=== PATIENT | male | born 1960 | race Caucasian/White ===

== ENCOUNTER → 2016-08-10 10:56 | Outpatient (CLI) | payer MEDICARE ==
[2016-05-06 11:01] VITALS: BMI 25.6
[~2016-08-10 10:56] MED LIST: ADVAIR 100/501 DISK INH; COLACE100 MG PO; CYCLOBENZAPRINE10 MG PO; ELIQUIS2.5 MG PO; HYDROCODONE-APA1 TAB PO; MS CONTIN15 MG PO; NEXIUM40 MG PO; OMEPRAZOLE40 MG PO; OXYCODONE HCL5 MG PO; PRINIVIL20 MG PO; PROAIR HFA8.5 GM INH; ROBAXIN500 MG PO; TOPAMAX25 MG PO; ULTRAM50 MG PO
== END | disposition home or self-care (01) ==
LOC: D.CT 10:56
DX: T84.068A Wear of articular bearing surface of other internal prosthetic joint, initial encounter (principal)

== ENCOUNTER 2016-11-30 18:11 | Emergency (ER) | payer MEDICARE ==
[2016-05-06 11:01] VITALS: BMI 25.6
[2016-11-30 18:53] LABS: BASOPHILS 0.2 % (0-2); EOSINOPHILS 1.3 % (0-7); HEMATOCRIT 42.1 % (42.0-54.0); HEMOGLOBIN 13.7 g/dL (13.5-17.5); IMMATURE GRANULOCYTES 0.3 % (0-5); LYMPHOCYTES 18.8 % (15-50); MCH 30.4 pg (26.0-34.0); MCHC 32.5 g/dL (31.0-37.0); MCV 93.3 fL (80.0-100.0); MEAN PLATELET VOLUME 10.3 fL (7.4-10.4); MONOCYTES 9.7 % (2-11); NEUTROPHILS 69.7 % (40-80); RBC 4.51 10x6/uL (4.20-6.10); RDW 12.8 % (11.5-14.5); WBC 6.4 10x3/uL (4.8-10.8)
[2016-11-30 18:56] LABS: PLATELET COUNT 241 10x3/uL (130-400)
[2016-11-30 18:56] LABS: APPEARANCE CLEAR (CLEAR); BILIRUBIN NEGATIVE (NEGATIVE); COLOR YELLOW (YELLOW); GLUCOSE NEGATIVE (NEGATIVE); KETONE NEGATIVE (NEGATIVE); LEUKOCYTE ESTERASE NEGATIVE (NEGATIVE); NITRITE NEGATIVE (NEGATIVE); PROTEIN NEGATIVE (NEGATIVE); UROBILINOGEN NORMAL (NORMAL)
[2016-11-30 19:08] LABS: ALBUMIN 4.1 g/dL (3.4-5.0); ANION GAP 14.6 mmol/L (8-16); BILIRUBIN - TOTAL 0.47 mg/dL (0.2-1.3); CALCIUM 9.2 mg/dL (8.5-10.1); CARBON DIOXIDE 25.9 mmol/L (21.0-32.0); CREATININE - SERUM 2.1 mg/dL (0.6-1.3); POTASSIUM - SERUM 4.5 mmol/L (3.5-5.1); PROTEIN - SERUM 7.4 g/dL (6.4-8.2)
== END 2016-11-30 21:12 | disposition home or self-care (01) ==
LOC: D.ER 18:11
PROVIDERS: Emergency Medicine
DX: N20.1 Calculus of ureter (principal); N23 Unspecified renal colic; C61 Malignant neoplasm of prostate; I10 Essential (primary) hypertension

== ENCOUNTER 2016-12-01 10:41 | Day surgery (SDC) | payer MEDICARE | END 2016-12-01 18:54 | disposition home or self-care (01) | LOC: D.OPS 10:41 → D.SDCHOLD 13:41 | PROVIDERS: Urology | DX: N20.0 Calculus of kidney (principal); J45.909 Unspecified asthma, uncomplicated; I10 Essential (primary) hypertension; K21.9 Gastro-esophageal reflux disease without esophagitis; Z01.812 Encounter for preprocedural laboratory examination ==

== ENCOUNTER 2016-12-12 10:59 | Emergency (ER) | payer MEDICARE ==
[2016-05-06 11:01] VITALS: BMI 25.6
[2016-12-12 12:19] LABS: BASOPHILS 0.2 % (0-2); EOSINOPHILS 0 % (0-7); HEMATOCRIT 41.7 % (42.0-54.0); HEMOGLOBIN 13.5 g/dL (13.5-17.5); IMMATURE GRANULOCYTES 0.2 % (0-5); LYMPHOCYTES 5.8 % (15-50); MCH 29.9 pg (26.0-34.0); MCHC 32.4 g/dL (31.0-37.0); MCV 92.5 fL (80.0-100.0); MEAN PLATELET VOLUME 10.2 fL (7.4-10.4); MONOCYTES 11.7 % (2-11); NEUTROPHILS 82.1 % (40-80); PLATELET COUNT 193 10x3/uL (130-400); RBC 4.51 10x6/uL (4.20-6.10); WBC 16.5 10x3/uL (4.8-10.8)
[2016-12-12 15:39] LABS: APPEARANCE HAZY (CLEAR); COLOR YELLOW (YELLOW); SPECIFIC GRAVITY 1.015 (1.005-1.020)
[2016-12-12 15:40] LABS: BACTERIA MANY /hpf (NONE SEEN); BILIRUBIN NEGATIVE (NEGATIVE); GLUCOSE NEGATIVE (NEGATIVE); KETONE NEGATIVE (NEGATIVE); LEUKOCYTE ESTERASE 2+ (NEGATIVE); NITRITE POSITIVE (NEGATIVE); PROTEIN 1+ mg/dL (NEGATIVE); RED CELLS - URINE 0-5 /hpf (0-5); UROBILINOGEN NORMAL (NORMAL); WHITE CELLS - URINE >50 /hpf (0-5)
[2016-12-12 15:58] LABS: ALBUMIN 3.7 g/dL (3.4-5.0); ANION GAP 14.1 mmol/L (8-16); BILIRUBIN - TOTAL 0.51 mg/dL (0.2-1.3); CALCIUM 9.4 mg/dL (8.5-10.1); CREATININE - SERUM 1.4 mg/dL (0.6-1.3); POTASSIUM - SERUM 4.1 mmol/L (3.5-5.1); PROTEIN - SERUM 8.2 g/dL (6.4-8.2)
== END 2016-12-12 17:48 | disposition home or self-care (01) ==
LOC: D.ER 10:59
PROVIDERS: Emergency Medicine
DX: N39.0 Urinary tract infection, site not specified (principal); R11.10 Vomiting, unspecified; R10.9 Unspecified abdominal pain; E86.0 Dehydration; I10 Essential (primary) hypertension; C61 Malignant neoplasm of prostate

== ENCOUNTER → 2016-12-23 09:07 | Outpatient (CLI) | payer MEDICARE ==
[2016-05-06 11:01] VITALS: BMI 25.6
== END | disposition home or self-care (01) ==
LOC: D.MRI 09:07
DX: M54.31 Sciatica, right side (principal)

== ENCOUNTER → 2017-01-04 18:41 | Outpatient (CLI) | payer MEDICARE ==
[2016-05-06 11:01] VITALS: BMI 25.6
[2017-01-04 19:16] LABS: APPEARANCE CLEAR (CLEAR); COLOR YELLOW (YELLOW)
[2017-01-04 19:17] LABS: BILIRUBIN NEGATIVE (NEGATIVE); GLUCOSE NEGATIVE (NEGATIVE); KETONE NEGATIVE (NEGATIVE); LEUKOCYTE ESTERASE TRACE (NEGATIVE); NITRITE NEGATIVE (NEGATIVE); PROTEIN 1+ mg/dL (NEGATIVE); UROBILINOGEN NORMAL (NORMAL)
[2017-01-04 19:18] LABS: BACTERIA FEW /hpf (NONE SEEN); EPITHELIAL CELLS 0-5 /hpf (0-5); RED CELLS - URINE 0-5 /hpf (0-5)
== END | disposition home or self-care (01) ==
LOC: D.LABREF 18:41
PROVIDERS: Urology
DX: N39.0 Urinary tract infection, site not specified (principal)

== ENCOUNTER 2017-03-07 06:00 | Day surgery (SDC) | payer MEDICARE ==
[2017-03-06 10:36] LABS: HEMATOCRIT 39.4 % (42.0-54.0); HEMOGLOBIN 12.7 g/dL (13.5-17.5); MCH 30.3 pg (26.0-34.0); MCHC 32.2 g/dL (31.0-37.0); MEAN PLATELET VOLUME 10.1 fL (7.4-10.4); RBC 4.19 10x6/uL (4.20-6.10); RDW 13.8 % (11.5-14.5); WBC 6.2 10x3/uL (4.8-10.8)
[~2017-03-07] VITALS: Ht 190.5 cm; Wt 98.4 kg
[~2017-03-07 06:00] MED LIST changes: +BACTRIM 400-801 TAB PO; +METOPROLOL TART50 MG PO
[2017-03-07] MEDS ORDERED: OMEPRAZOLE20 M1 PO (11:38)
[2017-03-07 12:02] VITALS: BP 130/72; Ht 190.5 cm; Wt 98.4 kg
--- NOTE | 2017-03-07 13:53 | NUR ---
1322: PENIS, SCTOUM AND PERITONEM SCRUBBED WITH HIBICLENS AND ALCHOL PRIOR TO STERILE PREP.
--- NOTE | 2017-03-07 17:16 | NUR ---
PATIENT STATES HE TAKES HYDROCODONE ON A REGULAR BASIS. HIS PAIN WAS AT A 5/10 ON DISCHARGE BACK TO O/P.
--- NOTE | 2017-03-08 09:04 | OP ---
PATIENT NAME: JARAD KARIMI MEDICAL RECORD: [id number] :64 LOCATION:[facility] ADMISSION DATE: SURGEON: SANTOS FIELD MD DATE OF OPERATION: 03/07/2017 SURGEON: Dr. Santos Field. ANESTHESIA: General anesthesia by Deyvi Ross CRNA. PREOPERATIVE DIAGNOSIS: Male stress urinary incontinence. PROCEDURE: Artificial urinary sphincter insertion using a 40 mm cuff length, 61-70 cm of water pressure regulation balloon. FINDINGS: Normal penile urethra, no injury during dissection. COMPLICATIONS: None. ESTIMATED BLOOD LOSS: Minimal. CLINICAL HISTORY: This is a 57-year-old male, who was diagnosed over a year ago with prostate cancer. He went to [facility] and he had a robotic radical prostatectomy performed. After the robotic radical prostatectomy, the patient has had urinary incontinence ever since. He wears pads on a continuous basis. He came to my attention when he developed left renal colic from a distal ureteral stone. In order to perform ureteroscopy, I had to incise the bladder neck incision. The stone was removed by ureteroscopy and the stent was inserted and then later on, the stent was removed. After the ureteroscopy with the bladder neck incision, his urinary incontinence became worse as predicted. He also developed a urinary tract infection with staph. This was sensitive to Bactrim and I have maintained him on Bactrim since then for suppression as he wanted to have an artificial urinary sphincter performed. He continues to leak heavily and wears pads and diapers. He wants to try to be continent again. He is not allergic to any medications. We gave him Ancef 2 grams and gentamicin 80 mg IV cleaning matron to the OR. The patient still has 9 days left of Bactrim to go and he will finish his remaining medications. DESCRIPTION OF PROCEDURE: The patient was given induction of general anesthesia. Also, he had use an enema the evening before as requested. We placed him into dorsal lithotomy position and shaved and prepped him. The prep was with Hibiclens and alcohol mix and then another prepped with chlorhexidine. This is the standard prep we used in this hospital for hip prosthesis placement and total knee replacement. Therefore, we are using the same prep as we are placing a prosthesis. The patient's legs were placed into the stirrups for dorsal lithotomy position. I stapled a blue towel across the rectal area to exclude it. A 16-Stateless silicone Bloom catheter was then inserted into the bladder and put the bag drainage. The urethra could be palpated with the Bloom catheter in place in the perineum. A 3-cm incision was made in the midline of the perineum. We went down to dartos fascia and then to Colles fascia and Ray's fascia. The bulbospongiosus muscle was then visible. Dissecting to the distal edge of the bulbospongiosus muscles, a right angle clamp was placed on the vertical midline and we were able to split the bulbospongiosus muscle using the Bovie. This allowed us to dissect laterally around the urethra just at the most proximal portion of the bulb right before the curve of the urethra towards the bladder neck. Then, much of the operative time was spent in OPERATIVE REPORT [id number] JARAD KARIMI dissecting the dorsal part of the urethra to make sure that we did not injure the urethra in any way during the dissection. We were actually under the pubic bone and I was dissecting the ligaments, which connect the urethra to the undersurface of the pubic bone. This was done with a combination of cautery and use of a 15 blade. Eventually, we were able to get around the urethra. The measuring tape was placed around the urethra and the urethral circumference was measured at 4 cm. At this point, the Bloom catheter was removed and methylene blue solution was injected into the urethra using a slip tip 10mL syringe. The urethral area had been packed with a lap sponge prior to injecting. We then removed the lap sponge and we were gratified to see that there was no methylene blue extravasation in the area of our dissection. The Bloom catheter was then placed back into the bladder and the balloon reinflated with 10 cc of sterile water. This was again put to bag drainage. The right angle clamp was then placed from the patient's right side with the tip coming out on the patient's left side. We then clamped the tip of the tab of the cuff with a clamp and the cuffless pull through. We then wrapped the cuff through the little hole in the tab and locked the cuff in place by placing the cuff tab around the structure at the base of the cuff. The entire structure was then wrapped so that the tubing would rise up laterally from the patient's right side. Wound was irrigated out with saline and vancomycin solution and then we packed the scrotal incision with gauze. A rubber shod clamp was placed on the cuff to prevent any loss of fluid and entry of air into the tubing. A transverse incision was made in the midline of the abdomen just above the symphysis pubis. Blunt dissection led us down to the rectus fascia. I used Metzenbaum to perforate through the midline of the rectus fascia into the space of Retzius. The perforation hole was enlarged using a Jesenia clamp. I was unable to place a finger in there and a large space in the retropubic area for the pressure regulation balloon. Using a ring clamp, the pressure regulation balloon was placed through the hole in the rectus fascia into the retropubic space. Since the hole in the rectus fascia is only about 1 cm in length, there was no need to try to close this hole with a suture. A rubber shod was placed on the tubing from the pressure regulation balloon. This balloon has stripe on it to identify the tubing. Finally, we used a long Jesenia clamp and bluntly dissected a tunnel from the suprapubic incision down into the right hemiscrotum. The pump was then placed down into the right hemiscrotum using the ring clamp. We made sure that the lockout button on the pump is actually facing externally that is outwardly instead turned inwardly. A Vicky clamp was placed on the scrotal skin above the level of the pump to prevent it from migrating cranially. The tubing passer was then used to bring the tubing from the cuff from the perineal incision by tunneling subcutaneously up to the suprapubic incision. At this point, connections were made. The clear tubing was connected to the clear tubing. The striped tubing was connected to the striped tubing. All of these connections were made in the suprapubic region. These were then placed under the Ray's fascia and then the fat was reapproximated using 3-0 Vicryl in simple interrupted sutures. A running subcuticular 4-0 Monocryl suture was used to close the suprapubic skin. Mastisol and Steri-Strips were applied and then a very large Band-Aid was applied to this site. In the scrotum, I wanted to be sure that there would be no bleeding. A sheet of Surgicel was wrapped around the urethra and then the bulbospongiosus muscle was then reapproximated over the Surgicel sheets. A running 3-0 Vicryl was used to reapproximate the bulbospongiosus muscle. The second layer was to reapproximate the dartos fascia. A running 3-0 Vicryl was also used for this. Finally, the skin was reapproximated using simple interrupted 3-0 Monocryl. The wounds were washed and mesh panties with fluffs were used to cover up the scrotal area. The OPERATIVE REPORT [id number] JARAD KARIMI patient will be going home with the Bloom catheter to bag drainage. I have given him a script for Alamo 7.5/325 times 20 tablets. I will see him in followup next week to check on his incisions and as well to remove the Bloom catheter. Prior to waking the patient up, I deactivated the cuff. The pump was pumped twice and then once the pump was almost full, but there was still a little dimple in the pump, the lockout button was pushed down to deactivate the device. TRANSINT:[id number] Voice Confirmation ID: [id number] DOCUMENT ID: [id number] SANTOS FIELD MD at 0904 CC: [id number] DICTATION DATE: 03/07/17 1632 PUBLIC AFFAIRS DIRECTOR: 03/07/172037 [facility] 03/07/17 [address] [place] [address]
== END 2017-03-07 18:20 | disposition home or self-care (01) ==
LOC: D.OPS 06:00 → D.PAN 12:00 → D.OPS 12:00
PROVIDERS: Anesthesiology
DX: N39.3 Stress incontinence (female) (male) (principal); J45.909 Unspecified asthma, uncomplicated; I10 Essential (primary) hypertension; G47.30 Sleep apnea, unspecified; K21.9 Gastro-esophageal reflux disease without esophagitis; Z01.812 Encounter for preprocedural laboratory examination; F17.200 Nicotine dependence, unspecified, uncomplicated

== ENCOUNTER → 2017-03-22 18:29 | Outpatient (CLI) | payer MEDICARE ==
[2017-03-07 12:02] VITALS: BMI 27.1
[~2017-03-22 18:29] MED LIST changes: +OMEPRAZOLE20 M1 PO
[2017-03-22 20:56] LABS: APPEARANCE CLEAR (CLEAR); COLOR YELLOW (YELLOW)
[2017-03-22 20:57] LABS: BILIRUBIN NEGATIVE (NEGATIVE); GLUCOSE NEGATIVE (NEGATIVE); KETONE NEGATIVE (NEGATIVE); LEUKOCYTE ESTERASE NEGATIVE (NEGATIVE); NITRITE NEGATIVE (NEGATIVE); PROTEIN NEGATIVE (NEGATIVE); SPECIFIC GRAVITY 1.015 (1.005-1.020); UROBILINOGEN NORMAL (NORMAL)
== END | disposition home or self-care (01) ==
LOC: D.LABREF 18:29
PROVIDERS: Urology
DX: N39.0 Urinary tract infection, site not specified (principal)

== ENCOUNTER 2017-03-31 15:45 | Outpatient (CLI) | payer MEDICARE ==
[~2017-03-31] VITALS: Ht 190.5 cm; Wt 98.6 kg
--- NOTE | ~2017-03-31 | HEMODYNAMI ---
PATIENT:JARAD KARIMI MEDICAL RECORD: [id number] : 64 [facility]: 03/31/17 Generatedon:03/31/201716:46 Patient name: JARAD KARIMI Patient #: [id number] SSN: : 1960 Date of study: 03/31/2017 Page: Of Hemodynamic Procedure Report Patient Data Patient Demographics Procedure consent was obtained First Name: JARAD Gender: Male Last Name: SACHI : 1960 Middle Initial: KATERINE Age: 57 year(s) Patient #: [id number] Race: Unknown Additional ID: [id number] Contact details [address]: [address] [place] [address] State: [place] City: [place] Zip code: [address] Admission Admission Data Admission Date: 03/31/2017 Admission Time: 15:45 Procedure Procedure Types Cath Procedure Peripheral Cath Diagnostic Procedure Miscellaneous Procedure Description Procedure Date Procedure Date: 03/31/2017 Procedure Start Time: 16:33 Procedure Staff Name Function Arturo Polk MD Performing Physician Carolee Temple RT Scrub Marisa Dotson RN Nurse Ab Mcbride RT Monitor Procedure Data Cath Procedure Fluoroscopy Diagnostic fluoroscopy Total fluoroscopy Time: 0.1 time: 0.1 min min Diagnostic fluoroscopy Total fluoroscopy dose: 2 dose: 2 mGy mGy Hemodynamics Rest Pre Cath Intra NCS Post Cath Procedure Log Time Note 16:07:49 Ab Mcbride RT (R) (CV) sent for patient. Start room use. 16:07:55 Patient received from Outpatients to IR Alert and oriented. Tansferred to table in Supine position. 16:07:57 Signed procedure consent form obtained from patient. 16:07:58 Pre-procedure instructions explained to patient. 16:08:01 Use device set PICC 16:08:03 SorbaView Shield opened to sterile field. 16:08:04 Sterile Angiographic Pack opened to sterile field. 16:08:05 Bag Decanter opened to sterile field. 16:08:09 Pre-op teaching completed and patient verbalized understanding. 16:08:16 Patient pain scale 0/10 no pain. 16:08:21 Right Arm area was prepped with chlora-prep and draped in sterile fashion 16:32:48 --------ALL STOP TIME OUT------ 16:32:50 Final Timeout: patient, procedure, and site verified with staff and physician. All members of the team are in agreement. 16:32:58 Sedation plan: Local Anesthetic Lidocaine 16:33:01 Sharps counted by scrub and verified by R.N. 16:33:03 Procedure started. 16:33:03 Full Disclosure recording started 16:33:13 Local anesthetic to right arm with Lidocaine 1% by Arturo Polk MD.INITIAL ACCESS ONLY 16:33:16 PowerPICC 5Fr double lumen catheter opened to sterile field. 16:36:59 Venous access obtained using ultrasound guidance. 16:37:17 PICC line was trimmed to 40cm and advanced to the superior vena cava.Position verified under fluoroscopy. 16:38:02 Procedure ended.(Physican Out) 16:39:33 Fluoroscopy time 00.10 minutes. 16:39:39 Fluoroscopy dose: 2 mGy 16:39:39 Flurop Dose total: 2 16:39:41 Sharps counted by scrub and verified by R.N. 16:45:39 Post right arm:stable 16:45:44 Report given to Outpatients. 16:45:48 Patient transfered to Outpatients with Wheelchair. Device Usage Item Name Manufacture Quantity Catalog Hospital Part Current Minimal Lot# / Number Charge Number Stock Stock Serial# Code Daniel Rodriguez [id number] 5 Shield Sterile Cardinal 1 [id number] 5 Angiographic Health Pack Bag Decanter Microtek 1 [id number] 5 Medical Inc. PowerPICC Bard 1 [id number] [id number] 5 5Fr double lumen catheter Signature Audit [place] Stage Time Signature Unsigned Intra-Procedure 03/31/2017 Ab 4:46:33 PM Shuffield RT (R) (CV) Signatures Monitor : Ab Signature : Shuffield RT Date : Time : [address] [address] [place] [address]
[2017-03-31 16:54] LABS: BASOPHILS 0.4 % (0-2); EOSINOPHILS 1.1 % (0-7); HEMATOCRIT 36.4 % (42.0-54.0); HEMOGLOBIN 11.9 g/dL (13.5-17.5); IMMATURE GRANULOCYTES 0.2 % (0-5); LYMPHOCYTES 20.1 % (15-50); MCH 30.7 pg (26.0-34.0); MCHC 32.7 g/dL (31.0-37.0); MCV 94.1 fL (80.0-100.0); MEAN PLATELET VOLUME 9.7 fL (7.4-10.4); MONOCYTES 8.8 % (2-11); NEUTROPHILS 69.4 % (40-80); PLATELET COUNT 227 10x3/uL (130-400); RBC 3.87 10x6/uL (4.20-6.10); RDW 13.1 % (11.5-14.5); WBC 5.4 10x3/uL (4.8-10.8)
[2017-03-31 17:02] LABS: CALC OSMOLALITY 281 mosm/kg (275-300); CALCIUM 8.7 mg/dL (8.5-10.1); CARBON DIOXIDE 27.3 mmol/L (21.0-32.0); CHLORIDE - SERUM 105 mmol/L (98-107); GLUCOSE 125 mg/dL (74-106); POTASSIUM - SERUM 3.5 mmol/L (3.5-5.1); SODIUM 140 mmol/L (136-145); UREA NITROGEN 19 mg/dL (7-18); eGFR NON AFRICAN AMERICAN 82 mL/min (90-120)
[2017-03-31 17:17] LABS: APPEARANCE CLEAR (CLEAR); BILIRUBIN NEGATIVE (NEGATIVE); COLOR YELLOW (YELLOW); GLUCOSE NEGATIVE (NEGATIVE); KETONE NEGATIVE (NEGATIVE); LEUKOCYTE ESTERASE TRACE (NEGATIVE); NITRITE NEGATIVE (NEGATIVE); PROTEIN NEGATIVE (NEGATIVE); SPECIFIC GRAVITY 1.025 (1.005-1.020); UROBILINOGEN NORMAL (NORMAL)
[2017-03-31 17:25] LABS: BACTERIA FEW /hpf (NONE SEEN); RED CELLS - URINE OCC /hpf (0-5); WHITE CELLS - URINE 0-5 /hpf (0-5)
[2017-03-31] MEDS ORDERED: INVANZ 1 GM/NS 11 G1 IV (17:32)
[2017-03-31 18:29] VITALS: BP 144/81; Ht 190.5 cm; Wt 98.6 kg
--- NOTE | 2017-03-31 19:02 | NUR ---
PICC LINE FLUSHED PER HOSPITAL PROTOTOCAL
--- NOTE | 2017-03-31 19:13 | NUR ---
SPOKE WITH DR DOWNS, FAXED COPY TO [facility] AND TO 2470 ER OF ORDER
== END 2017-03-31 19:00 | disposition home or self-care (01) ==
LOC: D.RAD 15:45
PROVIDERS: Student in an Organized Health Care Education/Training Program
DX: N39.0 Urinary tract infection, site not specified (principal)

== ENCOUNTER 2017-04-01 15:29 | Outpatient (CLI) | payer MEDICARE ==
[~2017-04-01] VITALS: Ht 190.5 cm; Wt 98.4 kg
[~2017-04-01 15:29] MED LIST changes: +INVANZ 1 GM/NS 11 G1 IV
[2017-04-01 16:40] VITALS: BP 125/66; Ht 190.5 cm; Wt 98.4 kg
--- NOTE | 2017-04-01 17:17 | NUR ---
IV INFUSION STARTED AT THIS TIME BY ANTONETTE OJEDA AT THIS TIME. RIGHT PICC LINE PATENT.
== END 2017-04-01 17:55 | disposition home or self-care (01) ==
LOC: D.OPS 15:29 → D.ER 15:29 → EDSTATUS 16:22 → D.MS 16:38 → D.OPS 17:55
DX: N12 Tubulo-interstitial nephritis, not specified as acute or chronic (principal)

== ENCOUNTER 2017-04-02 15:10 | Outpatient (CLI) | payer MEDICARE ==
[~2017-04-02] VITALS: Ht 190.5 cm; Wt 98.6 kg
[2017-04-02 15:33] VITALS: BP 135/81; Ht 190.5 cm; Wt 98.6 kg
== END 2017-04-02 16:35 | disposition home or self-care (01) ==
LOC: D.OPS 15:10 → D.MS 15:12 → D.OPS 16:35
DX: N12 Tubulo-interstitial nephritis, not specified as acute or chronic (principal)

== ENCOUNTER 2017-04-03 15:28 | Outpatient (CLI) | payer MEDICARE ==
[2017-04-03 16:34] VITALS: BP 154/77; Ht 190.5 cm
--- NOTE | 2017-04-03 16:36 | NUR ---
1625-PICC LINE TO RIGHT UPPER ARM RED PORT FLUSHED WITH SAILE AND BRISK BLOOD RETURN NOTED. INFUSION STARTED ON PUMP OVER 30 MINUTES.
== END 2017-04-03 17:10 | disposition home or self-care (01) ==
LOC: D.OPS 15:28
DX: N12 Tubulo-interstitial nephritis, not specified as acute or chronic (principal)

== ENCOUNTER 2017-04-04 14:55 | Outpatient (CLI) | payer MEDICARE | END 2017-04-04 16:59 | disposition home or self-care (01) | LOC: D.OPS 14:55 | DX: N12 Tubulo-interstitial nephritis, not specified as acute or chronic (principal) ==

== ENCOUNTER 2017-04-05 15:14 | Outpatient (CLI) | payer MEDICARE ==
--- NOTE | 2017-04-05 15:59 | NUR ---
1535 PRE LABS DRAWN VIA PICC LINE PRIOR TO INVANZ INITIATION. PICC LINE FLUSHED EASILY.
[2017-04-05 16:19] LABS: CREATININE - SERUM 0.9 mg/dL (0.6-1.3)
[2017-04-05 16:33] LABS: BASOPHILS 0.4 % (0-2); EOSINOPHILS 1.9 % (0-7); HEMATOCRIT 40.1 % (42.0-54.0); HEMOGLOBIN 12.9 g/dL (13.5-17.5); LYMPHOCYTES 20.9 % (15-50); MCH 30.1 pg (26.0-34.0); MCHC 32.2 g/dL (31.0-37.0); MCV 93.7 fL (80.0-100.0); MEAN PLATELET VOLUME 10.3 fL (7.4-10.4); MONOCYTES 8.4 % (2-11); NEUTROPHILS 68.4 % (40-80); PLATELET COUNT 214 10x3/uL (130-400); RBC 4.28 10x6/uL (4.20-6.10); WBC 5.2 10x3/uL (4.8-10.8)
--- NOTE | 2017-04-05 17:02 | NUR ---
DRESSING CHANGE COMPLETE. PICC PLACEMENT PULLED OUT APPROXIMATELY 1.5 INCHES. RADIOLOGY NOTIFIED, PLACED ON 03/31/[address] VIDALES. DRESSING REAPPLIED VIA STERILE TECHNIQUE. CHEST XRAY OBTAINED. SPOKE WITH ANTONETTE JAMES. WILL HAVE ANTONETTE JAMES CHECK PRIOR TO INFUSION 04/06/17.
== END 2017-04-05 17:05 | disposition home or self-care (01) ==
LOC: D.OPS 15:14
PROVIDERS: Student in an Organized Health Care Education/Training Program
DX: N12 Tubulo-interstitial nephritis, not specified as acute or chronic (principal)

== ENCOUNTER 2017-04-06 08:00 | Outpatient (CLI) | payer MEDICARE ==
[~2017-04-06] VITALS: Ht 190.5 cm; Wt 98.6 kg
--- NOTE | ~2017-04-06 | HEMODYNAMI ---
PATIENT:JARAD KARIMI MEDICAL RECORD: [id number] : 64 LOCATION:[facility] ADMISSION DATE: 04/06/17 Generatedon:04/06/201715:28 Patient name: JARAD KARIMI Patient #: [id number] SSN: : 1960 Date of study: 04/06/2017 Page: Of Hemodynamic Procedure Report Patient Data Patient Demographics Procedure consent was obtained First Name: JARAD Gender: Male Last Name: SACHI : 1960 Middle Initial: KATERINE Age: 57 year(s) Patient #: [id number] Race: Unknown Additional ID: [id number] Contact details Address: [address] [place] [address] State: [place] City: [place] Zip code: [address] Admission Admission Data Admission Date: 04/06/2017 Admission Time: 10:00 Procedure Procedure Types Cath Procedure Peripheral Cath Diagnostic Procedure Miscellaneous Procedure Description Procedure Date Procedure Date: 04/06/2017 Procedure Start Time: 15:04 Procedure Staff Name Function Arturo Polk MD Performing Physician Carolee Temple RT Monitor Ab Mcbride RT Scrub Procedure Data Cath Procedure Fluoroscopy Diagnostic fluoroscopy Total fluoroscopy Time: 0.2 time: 0.2 min min Diagnostic fluoroscopy Total fluoroscopy dose: 3 dose: 3 mGy mGy Hemodynamics Rest Pre Cath Intra NCS Post Cath Procedure Log Time Note 14:33:47 Time tracking: Regular hours 14:33:50 Carolee Temple RT (R) (CV) sent for patient. Start room use. 14:34:06 Patient received from Outpatients to IR Alert and oriented. Tansferred to table in Supine position. 14:34:08 Signed procedure consent form obtained from patient. 14:34:09 Pre-procedure instructions explained to patient. 14:34:14 Use device set PICC 14:34:15 Bag Decanter opened to sterile field. 14:34:16 Sterile Angiographic Pack opened to sterile field. 14:34:16 SorbaView Shield opened to sterile field. 14:34:19 Pre-op teaching completed and patient verbalized understanding. 14:34:24 Patient pain scale 0/10 no pain. 14:50:10 PowerPICC 5Fr double lumen catheter opened to sterile field. 15:03:14 Right Arm area was prepped with chlora-prep and draped in sterile fashion 15:03:16 --------ALL STOP TIME OUT------ 15:03:18 Final Timeout: patient, procedure, and site verified with staff and physician. All members of the team are in agreement. 15:03:25 Sedation plan: Local Anesthetic Lidocaine 15:04:00 Procedure started. 15:04:01 Full Disclosure recording started 15:04:06 Local anesthetic to right arm with Lidocaine 1% by Arturo Polk MD.INITIAL ACCESS ONLY 15:09:57 SUTURE ETHILON 2-0 BLK MONO FS opened to sterile field. 15:21:22 Procedure ended.(Physican Out) 15:23:44 Fluoroscopy time 00.20 minutes. 15:23:50 Flurop Dose total: 3 15:23:50 Fluoroscopy dose: 3 mGy 15:24:46 Insertion/operative site no bleeding no hematoma. 15:24:58 Post right arm:stable 15:25:22 Post procedure instruction explained to patient.Patient verbalizes understanding. 15:25:22 Procedure and supply charges have been captured, reviewed, submitted and are correct. 15:25:24 Report given to Outpatients. 15:25:28 Patient transfered to Outpatients with Wheelchair. Device Usage Item Name Manufacture Quantity Catalog Hospital Part Current Minimal Lot# / Number Charge Number Stock Stock Serial# Code Bag Decanter Microtek 1 [id number] 5 Medical Inc. Sterile Cardinal 1 [id number] [id number] 5 Angiographic Health Pack SorbaView Centurion 1 [id number] 156686 [id number] 5 Shield PowerPICC Bard 1 [id number] [id number] [id number] 5 5Fr double lumen catheter SUTURE Ethicon 1 [id number] [id number] 5 ETHILON 2-0 BLK MONO FS Signature Audit [place] Stage Time Signature Unsigned Intra-Procedure 04/06/2017 Ab 3:28:12 PM Shuffield RT (R) (CV) Signatures Monitor : Carolee Signature : Maverick RT Date : Time : [address] [place] [address]
[2017-04-06 15:50] VITALS: BP 141/78; Ht 190.5 cm; Wt 98.6 kg
== END 2017-04-06 23:59 | disposition home or self-care (01) ==
LOC: D.OPS 08:00
DX: N12 Tubulo-interstitial nephritis, not specified as acute or chronic (principal)

== ENCOUNTER 2017-04-07 09:51 | Outpatient (CLI) | payer MEDICARE ==
[~2017-04-07] VITALS: Ht 190.5 cm; Wt 99.1 kg
[2017-04-07 11:15] VITALS: BP 142/76; Ht 190.5 cm; Wt 99.1 kg
== END 2017-04-07 12:15 | disposition home or self-care (01) ==
LOC: D.OPS 09:51
DX: N12 Tubulo-interstitial nephritis, not specified as acute or chronic (principal)

== ENCOUNTER 2017-04-08 13:04 | Outpatient (CLI) | payer MEDICARE ==
[2017-04-07 11:15] VITALS: BMI 27.3
--- NOTE | 2017-04-08 13:22 | NUR ---
RECIEVED PT TO FLOOR AT THIS TIME. PT AWAITING ANTIBIOTIC ADMINISTRATION.
--- NOTE | 2017-04-08 14:10 | NUR ---
PT DISCHARGED TO HOME AT THIS TIME.
== END 2017-04-08 14:45 | disposition home or self-care (01) ==
LOC: D.OPS 13:04 → D.MS 13:11 → D.OPS 14:45
DX: N12 Tubulo-interstitial nephritis, not specified as acute or chronic (principal)

== ENCOUNTER 2017-04-09 11:15 | Outpatient (CLI) | payer MEDICARE ==
[2017-04-07 11:15] VITALS: BMI 27.3
--- NOTE | 2017-04-09 11:30 | NUR ---
RECIEVED PT TO ROOM AT THIS TIME, PT COMPLAINS OF ITCHING AROUND DRESSING OF PICC LINE. DRESSING CHANGED PER PROTOCOL. WILL CONTINUE TO MONITOR.
--- NOTE | 2017-04-09 12:30 | NUR ---
PICC LINE CARE PER ORDER. PT DISCHARGED
== END 2017-04-09 12:49 | disposition home or self-care (01) ==
LOC: D.OPS 11:15 → D.MS 11:16 → D.OPS 12:49
DX: N12 Tubulo-interstitial nephritis, not specified as acute or chronic (principal)

== ENCOUNTER 2017-04-10 14:59 | Outpatient (CLI) | payer MEDICARE ==
[2017-04-07 11:15] VITALS: BMI 27.3
--- NOTE | 2017-04-10 15:54 | NUR ---
ALERT AND ORIENTED X4. ARRIVE TO ROOM VIA AMBULATORY. GAIT STEADY. RT ARM PICC CLEAN DRY INTACT. ARRIVE FOR OUTPATIENT IV ANTIBIOTICS. INITIATE IV ANTIBIOTIC TREATMENT.
[2017-04-10 16:34] VITALS: BP 130/77
--- NOTE | 2017-04-10 17:28 | NUR ---
ALERT AND ORIENTED X4. IV ANTIBIOTIC COMPLETE. FLUSH BOTH PICC LINE LUMENS WITH 10mL SALINE AND HEPARIN FLUSH ORDERED. SEND HOME WITH ALCOHOL PADS AND IV CAPS. QUICK START AND NOTE COMPLETE. NOT REQUIRED TO DO HISTORY, ADMISSION ASSESSMENT, OR DISCHARGE PER JAIMIE BROWNDISTRIBUTION WAREHOUSE MANAGER. ESCORT TO DOOR VIA AMBULATORY. REMAINS FREE FROM INJURY. DENIES AND PAIN OR SOB.
== END 2017-04-10 17:15 | disposition home or self-care (01) ==
LOC: D.OPS 14:59 → D.SDCHOLD 15:00 → D.M2 15:04 → D.OPS 17:15
DX: N12 Tubulo-interstitial nephritis, not specified as acute or chronic (principal)

== ENCOUNTER 2017-04-11 16:05 | Outpatient (CLI) | payer MEDICARE ==
[2017-04-11 16:47] VITALS: Ht 190.5 cm
--- NOTE | 2017-04-11 17:31 | NUR ---
PICC LINE FLUSHED PASS INFUSION PER HOSPITAL PROTOCAL
== END 2017-04-11 17:25 | disposition home or self-care (01) ==
LOC: D.OPS 16:05
DX: N12 Tubulo-interstitial nephritis, not specified as acute or chronic (principal)

== ENCOUNTER 2017-04-12 12:00 | Outpatient (CLI) | payer MEDICARE ==
[~2017-04-12] VITALS: Ht 190.5 cm; Wt 98.6 kg
[2017-04-12 16:32] VITALS: BP 139/72; Ht 190.5 cm; Wt 98.6 kg
[2017-04-12 16:38] LABS: BASOPHILS 0.3 % (0-2); EOSINOPHILS 0.8 % (0-7); HEMATOCRIT 41.1 % (42.0-54.0); HEMOGLOBIN 13.5 g/dL (13.5-17.5); IMMATURE GRANULOCYTES 0.3 % (0-5); MCH 30.8 pg (26.0-34.0); MCHC 32.8 g/dL (31.0-37.0); MCV 93.8 fL (80.0-100.0); MEAN PLATELET VOLUME 9.9 fL (7.4-10.4); NEUTROPHILS 69.6 % (40-80); PLATELET COUNT 218 10x3/uL (130-400); RBC 4.38 10x6/uL (4.20-6.10); RDW 12.7 % (11.5-14.5)
== END 2017-04-12 23:59 | disposition home or self-care (01) ==
LOC: D.OPS 12:00
PROVIDERS: Student in an Organized Health Care Education/Training Program
DX: N12 Tubulo-interstitial nephritis, not specified as acute or chronic (principal)

== ENCOUNTER 2017-04-13 08:00 | Outpatient (CLI) | payer MEDICARE ==
[2017-04-13 15:04] VITALS: BP 138/71; BMI 27.1
--- NOTE | 2017-04-13 16:05 | NUR ---
1600 DISCHARGE INSTRUCTIONS COMPLETE. PICC LINE REMOVED BY HI NURSE GINA. HE HAS NO QUESTIONS OR CONCERNS. ESCORTED OUT.
== END 2017-04-13 23:59 | disposition home or self-care (01) ==
LOC: D.OPS 08:00
DX: N12 Tubulo-interstitial nephritis, not specified as acute or chronic (principal); Z16.30 Resistance to unspecified antimicrobial drugs

== ENCOUNTER → 2017-04-21 18:02 | Outpatient (CLI) | payer MEDICARE ==
[2017-04-13 15:04] VITALS: BMI 27.1
== END | disposition home or self-care (01) ==
LOC: D.LABREF 18:02
DX: N39.0 Urinary tract infection, site not specified (principal)

== ENCOUNTER 2017-05-03 16:58 | Emergency (ER) | payer MEDICARE | END 2017-05-03 21:00 | disposition home or self-care (01) | LOC: D.ER 16:58 | DX: S29.012A Strain of muscle and tendon of back wall of thorax, initial encounter (principal); W19.XXXA Unspecified fall, initial encounter; Y93.89 Activity, other specified; Y92.410 Unspecified street and highway as the place of occurrence of the external cause; S20.211A Contusion of right front wall of thorax, initial encounter; I10 Essential (primary) hypertension ==

== ENCOUNTER 2018-02-13 09:51 | Day surgery (SDC) | payer MEDICARE ==
[2018-02-12 12:47] LABS: BASOPHILS 0.2 % (0-2); EOSINOPHILS 0.9 % (0-7); HEMATOCRIT 42.2 % (42.0-54.0); HEMOGLOBIN 13.6 g/dL (13.5-17.5); IMMATURE GRANULOCYTES 0.2 % (0-5); LYMPHOCYTES 21.3 % (15-50); MCH 29.4 pg (26.0-34.0); MCHC 32.2 g/dL (31.0-37.0); MCV 91.1 fL (80.0-100.0); MEAN PLATELET VOLUME 10.1 fL (7.4-10.4); NEUTROPHILS 69.4 % (40-80); PLATELET COUNT 232 10x3/uL (130-400); RBC 4.63 10x6/uL (4.20-6.10); RDW 13.4 % (11.5-14.5); WBC 5.3 10x3/uL (4.8-10.8)
[2018-02-12 12:55] LABS: APTT 29.1 SECONDS (22.8-39.4); INR 1.02 (0.85-1.17)
[~2018-02-13] VITALS: Ht 190.5 cm; Wt 103.9 kg
--- NOTE | ~2018-02-13 | OP ---
PATIENT NAME: JARAD KARIMI MEDICAL RECORD: [id number] :64 LOCATION:[facility] ADMISSION DATE: SURGEON: JEFFREY ZHANG MD DATE OF OPERATION: 02/13/2018 PREOPERATIVE DIAGNOSES: 1. Right inguinal lymphadenopathy. 2. Tobacco dependence syndrome. 3. Hypertension. 4. GERD. 5. History of prostate cancer. POSTOPERATIVE DIAGNOSES: 1. Right inguinal lymphadenopathy. 2. Tobacco dependence syndrome. 3. Hypertension. 4. GERD. 5. History of prostate cancer. PROCEDURE: Right inguinal lymph node excisional biopsy. SURGEON: Jeffrey Zhang MD PANELBOARD OPERATOR: Radha Monterroso APRN REPORT OF OPERATION: The patient's right groin was prepped and draped in sterile fashion. An oblique incision was made overlying the mass. Electrocautery was used to dissect through the subcutaneous tissues. We were eventually able to come down around an enlarged and firm collection of fatty tissue with core of inguinal lymph node. This lymph node appeared to be approximately 1.5-2 cm in size. I went ahead and sent the whole specimen off to pathology. The subcutaneous tissues were inspected. There were 2 bleeding vessels present and these were tied off with 3-0 silk. We then reapproximated the subcutaneous tissues with interrupted 3-0 Vicryl and the skin was closed with running subcutaneous 5-0 Monocryl. COMPLICATIONS: None. CONDITION: Stable. ANESTHESIA: General endotracheal and local. BLOOD LOSS: Minimal. TRANSINT:[id number] Voice Confirmation ID: [id number] DOCUMENT ID: [id number] JEFFREY ZHANG MD at 1418 CC: SADIA DC MD [id number] DICTATION DATE: 02/13/18 1644 DEFLECTOR OPERATOR: 02/13/18 1709 [facility] 02/13/18 [place] [address]
[~2018-02-13 09:51] MED LIST changes: +LEXAPRO10 MG PO
[2018-02-13 10:02] VITALS: BP 134/71; Ht 190.5 cm; Wt 103.9 kg
[2018-02-13] MEDS ORDERED: HYDROCODONE-APA1 TAB PO (16:38)
== END 2018-02-13 18:30 | disposition home or self-care (01) ==
LOC: D.OPS 09:51 → D.PAN 12:15 → D.OPS 12:15
PROVIDERS: Anesthesiology
DX: R59.0 Localized enlarged lymph nodes (principal); I10 Essential (primary) hypertension; K21.9 Gastro-esophageal reflux disease without esophagitis; F17.200 Nicotine dependence, unspecified, uncomplicated; Z85.46 Personal history of malignant neoplasm of prostate; Z01.812 Encounter for preprocedural laboratory examination

== ENCOUNTER → 2018-03-01 12:35 | Outpatient (CLI) | payer MEDICARE ==
[2018-02-13 10:02] VITALS: BMI 28.6
[~2018-03-01 12:35] MED LIST changes: +BENADRYL25 MG PO; +ESGIC TABLET1 TAB PO; +HYDROCODON-ACE1 EAC7 PO
== END | disposition home or self-care (01) ==
LOC: D.US 12:00
DX: R10.2 Pelvic and perineal pain (principal); R10.9 Unspecified abdominal pain

== ENCOUNTER → 2018-03-01 17:51 | Outpatient (CLI) | payer MEDICARE ==
[2018-02-13 10:02] VITALS: BMI 28.6
== END | disposition home or self-care (01) ==
LOC: D.LABREF 17:51
DX: S30.1XXA Contusion of abdominal wall, initial encounter (principal); X58.XXXA Exposure to other specified factors, initial encounter

== ENCOUNTER 2018-03-03 11:23 | Inpatient (IN) | payer MEDICARE ==
[~2018-03-03] VITALS: Ht 190.5 cm; Wt 105.2 kg
--- NOTE | ~2018-03-03 | OP ---
PATIENT NAME: JARAD KARIMI MEDICAL RECORD: [id number] :64 LOCATION:[id number] ADMISSION DATE:03/03/18 SURGEON: SANTOS DAVIS MD DATE OF OPERATION: 03/05/2018 PREOPERATIVE DIAGNOSIS: Postop right groin infection. POSTOPERATIVE DIAGNOSIS: Postop right groin infection. PROCEDURE: Excisional debridement with marsupialization and packing of the right groin abscess. Dimensions of the debridement, including margins, measured 5.2 x 3.0 cm and the depth was 4 cm. The tissues that were sharply debrided consisted of skin, subcutaneous tissue, and necrotic fat as well as a portion of the abscess cavity. SURGEON: Santos Davis MD PUMP AND STILL OPERATOR: None. BLOOD LOSS: Minimal. ANESTHESIA: General. COMPLICATIONS: None. The risks, possible complications, and alternatives to the procedure were explained to the patient. He elects to proceed. OPERATIVE COURSE: The patient was conveyed to the operating room electively on 03/05/2018. General anesthesia was induced by the anesthesia staff. The right groin was sterilely prepped and draped. I was able to bluntly enter the abscess cavity. Cultures were obtained. Utilizing scalpel, I sharply debrided back to healthy viable bleeding tissue. The dimensions of the excision are listed above. Additional gentle curettage of the abscess cavity was carried out with care paid not to injure the femoral nerve or the femoral artery or vein. I marsupialized the wound with a running locking 3-0 Vicryl Rapide suture. I then packed the wound with #1 iodoform gauze. A sterile dressing was applied. The patient was then extubated and conveyed to postanesthesia care unit, where she was in stable condition. TRANSINT:[id number] Voice Confirmation ID: [id number] DOCUMENT ID: [id number] SANTOS DAVIS MD at 1425 CC: ENEIDA ZHANG and SADIA DC MD [id number] DICTATION DATE: 03/05/18 1523 BLOOD OR BLOOD BANK TECHNICIAN: 03/05/18 1633 DIS IN 03/09/18 [place] [address]
--- NOTE | ~2018-03-03 | MORECARE ---
CASE MANAGEMENT DISCHARGE SUMMARY PATIENT: JARAD KARIMI KATERINE UNIT: [id number] ADM DATE: 03/03/18 AGE: 58 : 64 SEX: M ROOM/BED: D.2227 AUTHOR: CASE, RESIDENTIAL MORTGAGE MANAGER PHYSICIAN: REFERRING PHYSICIAN: PIPPA FIELDS MD DATE OF SERVICE: 03/03/18 Discharge Plan Patient Name: JARAD KARIMI Facility: [facility]:[place] : 1960 Planned Disposition: Home Anticipated Discharge Date: 03/09/18 Discharge Date: 03/09/2018 Expected LOS: 6 Initial Reviewer: [email or web address] Initial Review Date: 03/09/2018 Generated: 03/09/18 3:19 pm Comments DCP- Discharge Planning Updated by [email or web address]: Madison Stein on 03/09/18 12:[address] PATIENT WILL BE DISCHARGING HOME WITH [facility], PATIENT NEEDS DAILY DRESSING CHANGE. HE STATED THAT HE WILL GO TO THE WALK IN CLINIC TOMORROW THEN [facility] WILL PICK HIM UP ON MONDAY. PATIENT WILL NEED TO MAKE A NURSE APPOINTMENT ON MONDAY AT DR DAVIS'S OFFICE (PER KYLIE) AND THEY WILL DO THE DRESSING CHANGE EVERYOTHER DAY AND HOME HEALTH WILL COME IN BETWEEN. BOTH PATIENT'S NURSE AND TREVOR AWARE OF THE ABOVE. CM WILL CONTINUE TO FOLLOW AND ASSIST WITH DC PLNNING NEEDED. External Providers External Provider: [facility] Next Contact Date: Service Request Date: Service Type: Resolution: Reviewer: Comments: External Provider: [facility] Next Contact Date: Service Request Date: Service Type: Resolution: Reviewer: Comments: Coverage Notice Reviewer: [email or web address] Davina Abreu Notice Issued Date-Time: 03/09/2018 11:54 Notice Type: IM Discharge Notice Notice Delivered To: Patient Relationship to Patient: Self Senior Electrical Designer Name: Delivery Method: HAND - Hand Delivered Josseline Days: Prior Verbal Notification: Recipient Understood Notice: Yes Recipient Signature: Yes Med Rec Note Co-signed by Attending: Coverage Notice Comment: Patient Name: JARAD KARIMI Page [phone] All edits/amendments must be made on the electronic document DICTATION DATE: 03/09/18 1418 DRY MILL WORKER: 03/09/18 1418 RPT#: [id number] DC DATE:03/09/18 STATUS: DIS IN [facility] [address] [place] [address] END OF REPORT
[~2018-03-03 11:23] MED LIST changes: -BENADRYL25 MG PO; -ESGIC TABLET1 TAB PO; -HYDROCODON-ACE1 EAC7 PO
[2018-03-03 12:55] LABS: BASOPHILS 0.1 % (0-2); EOSINOPHILS 0.3 % (0-7); HEMATOCRIT 39.1 % (42.0-54.0); HEMOGLOBIN 12.6 g/dL (13.5-17.5); IMMATURE GRANULOCYTES 0.2 % (0-5); LYMPHOCYTES 5.7 % (15-50); MCH 29.3 pg (26.0-34.0); MCHC 32.2 g/dL (31.0-37.0); MCV 90.9 fL (80.0-100.0); MEAN PLATELET VOLUME 10.6 fL (7.4-10.4); MONOCYTES 9.3 % (2-11); NEUTROPHILS 84.4 % (40-80); PLATELET COUNT 200 10x3/uL (130-400); RDW 13.6 % (11.5-14.5); WBC 9.2 10x3/uL (4.8-10.8)
[2018-03-03 13:11] LABS: CALC OSMOLALITY 263 mosm/kg (275-300); CALCIUM 8.8 mg/dL (8.5-10.1); CARBON DIOXIDE 27.3 mmol/L (21.0-32.0); CHLORIDE - SERUM 98 mmol/L (98-107); CREATININE - SERUM 0.9 mg/dL (0.6-1.3); GLUCOSE 98 mg/dL (74-106); SODIUM 131 mmol/L (136-145); UREA NITROGEN 14 mg/dL (7-18); eGFR NON AFRICAN AMERICAN > 90 mL/min (90-120)
[2018-03-03 20:22] VITALS: BP 158/83
[2018-03-03 23:17] VITALS: BP 116/61
[2018-03-04 01:49] VITALS: BP 116/61; BMI 29.0
[2018-03-04 04:38] VITALS: BP 118/61
[2018-03-04 06:01] LABS: BASOPHILS 0 % (0-2); HEMATOCRIT 35.5 % (42.0-54.0); HEMOGLOBIN 11.4 g/dL (13.5-17.5); IMMATURE GRANULOCYTES 0.1 % (0-5); LYMPHOCYTES 9.3 % (15-50); MCH 29.2 pg (26.0-34.0); MCHC 32.1 g/dL (31.0-37.0); MCV 90.8 fL (80.0-100.0); MEAN PLATELET VOLUME 10.5 fL (7.4-10.4); MONOCYTES 7.9 % (2-11); NEUTROPHILS 81.7 % (40-80); PLATELET COUNT 196 10x3/uL (130-400); RBC 3.91 10x6/uL (4.20-6.10); RDW 13.5 % (11.5-14.5); WBC 7.1 10x3/uL (4.8-10.8)
[2018-03-04 06:35] LABS: ALBUMIN 2.9 g/dL (3.4-5.0); ALKALINE PHOSPHATASE 93 U/L (46-116); ALT (SGPT) 21 U/L (10-68); BILIRUBIN - TOTAL 0.28 mg/dL (0.2-1.3); CALC OSMOLALITY 274 mosm/kg (275-300); CALCIUM 8.1 mg/dL (8.5-10.1); CARBON DIOXIDE 27.7 mmol/L (21.0-32.0); CHLORIDE - SERUM 101 mmol/L (98-107); GLUCOSE 114 mg/dL (74-106); POTASSIUM - SERUM 4.3 mmol/L (3.5-5.1); PROTEIN - SERUM 6.1 g/dL (6.4-8.2); SODIUM 136 mmol/L (136-145); UREA NITROGEN 19 mg/dL (7-18); eGFR NON AFRICAN AMERICAN 82 mL/min (90-120)
[2018-03-04 09:37] VITALS: BP 101/68
[2018-03-04 17:37] VITALS: BP 109/60
[2018-03-04 19:33] VITALS: BP 102/49
[2018-03-04 23:43] VITALS: BP 98/47
[2018-03-05] VITALS (11 sets, daily range): BP systolic 96–141; BP diastolic 44–84; Ht 190.5 cm; Wt 105.2 kg
[2018-03-05 05:04] LABS: BASOPHILS 0.2 % (0-2); EOSINOPHILS 3.1 % (0-7); HEMOGLOBIN 10.5 g/dL (13.5-17.5); IMMATURE GRANULOCYTES 0.2 % (0-5); LYMPHOCYTES 19.2 % (15-50); MCH 29.1 pg (26.0-34.0); MCHC 31.8 g/dL (31.0-37.0); MCV 91.4 fL (80.0-100.0); MEAN PLATELET VOLUME 10.3 fL (7.4-10.4); NEUTROPHILS 66.3 % (40-80); PLATELET COUNT 173 10x3/uL (130-400); RBC 3.61 10x6/uL (4.20-6.10); RDW 13.6 % (11.5-14.5)
[2018-03-05 05:13] LABS: WBC 4.5 10x3/uL (4.8-10.8)
[2018-03-05 05:36] LABS: ALBUMIN 2.5 g/dL (3.4-5.0); ALKALINE PHOSPHATASE 94 U/L (46-116); BILIRUBIN - TOTAL 0.23 mg/dL (0.2-1.3); CALC OSMOLALITY 276 mosm/kg (275-300); CALCIUM 8.1 mg/dL (8.5-10.1); CARBON DIOXIDE 27.9 mmol/L (21.0-32.0); CHLORIDE - SERUM 104 mmol/L (98-107); GLUCOSE 100 mg/dL (74-106); POTASSIUM - SERUM 4.4 mmol/L (3.5-5.1); PROTEIN - SERUM 5.4 g/dL (6.4-8.2); SODIUM 137 mmol/L (136-145); UREA NITROGEN 20 mg/dL (7-18); eGFR NON AFRICAN AMERICAN 82 mL/min (90-120)
[2018-03-05 05:37] LABS: ALT (SGPT) 28 U/L (10-68)
[2018-03-06 04:13] VITALS: BP 124/64
[2018-03-06 06:17] LABS: BASOPHILS 0.1 % (0-2); EOSINOPHILS 0.1 % (0-7); HEMATOCRIT 34.6 % (42.0-54.0); HEMOGLOBIN 10.9 g/dL (13.5-17.5); IMMATURE GRANULOCYTES 0.3 % (0-5); LYMPHOCYTES 11.8 % (15-50); MCH 28.8 pg (26.0-34.0); MCHC 31.5 g/dL (31.0-37.0); MCV 91.5 fL (80.0-100.0); MEAN PLATELET VOLUME 10.5 fL (7.4-10.4); NEUTROPHILS 81.7 % (40-80); RBC 3.78 10x6/uL (4.20-6.10); RDW 13.6 % (11.5-14.5)
[2018-03-06 06:31] LABS: PLATELET COUNT 231 10x3/uL (130-400); WBC 7.5 10x3/uL (4.8-10.8)
[2018-03-06 06:43] LABS: ALBUMIN 2.6 g/dL (3.4-5.0); ALKALINE PHOSPHATASE 88 U/L (46-116); ALT (SGPT) 27 U/L (10-68); BILIRUBIN - TOTAL 0.22 mg/dL (0.2-1.3); CALC OSMOLALITY 277 mosm/kg (275-300); CALCIUM 7.9 mg/dL (8.5-10.1); CARBON DIOXIDE 24.4 mmol/L (21.0-32.0); CHLORIDE - SERUM 104 mmol/L (98-107); GLUCOSE 106 mg/dL (74-106); POTASSIUM - SERUM 4.7 mmol/L (3.5-5.1); PROTEIN - SERUM 5.6 g/dL (6.4-8.2); SODIUM 138 mmol/L (136-145); UREA NITROGEN 18 mg/dL (7-18); eGFR NON AFRICAN AMERICAN 82 mL/min (90-120)
[2018-03-06 08:24] VITALS: BP 105/60
[2018-03-06 12:40] VITALS: BP 101/59
[2018-03-06 15:37] VITALS: BP 110/53
[2018-03-06 19:54] VITALS: BP 117/59
[2018-03-06 23:32] VITALS: BP 121/56
[2018-03-07 07:04] LABS: BASOPHILS 0.2 % (0-2); EOSINOPHILS 1.6 % (0-7); HEMATOCRIT 33.2 % (42.0-54.0); HEMOGLOBIN 10.5 g/dL (13.5-17.5); IMMATURE GRANULOCYTES 0.5 % (0-5); LYMPHOCYTES 22.5 % (15-50); MCH 29.2 pg (26.0-34.0); MCHC 31.6 g/dL (31.0-37.0); MCV 92.2 fL (80.0-100.0); MEAN PLATELET VOLUME 10.6 fL (7.4-10.4); NEUTROPHILS 68.2 % (40-80); PLATELET COUNT 216 10x3/uL (130-400); RDW 13.6 % (11.5-14.5); WBC 6.1 10x3/uL (4.8-10.8)
[2018-03-07 07:19] LABS: ALBUMIN 2.5 g/dL (3.4-5.0); ALKALINE PHOSPHATASE 81 U/L (46-116); ALT (SGPT) 33 U/L (10-68); BILIRUBIN - TOTAL 0.14 mg/dL (0.2-1.3); CALC OSMOLALITY 276 mosm/kg (275-300); CARBON DIOXIDE 27.9 mmol/L (21.0-32.0); CHLORIDE - SERUM 107 mmol/L (98-107); CREATININE - SERUM 0.8 mg/dL (0.6-1.3); GLUCOSE 82 mg/dL (74-106); POTASSIUM - SERUM 4.3 mmol/L (3.5-5.1); PROTEIN - SERUM 5.3 g/dL (6.4-8.2); SODIUM 139 mmol/L (136-145); UREA NITROGEN 12 mg/dL (7-18); eGFR NON AFRICAN AMERICAN > 90 mL/min (90-120)
[2018-03-07 07:49] VITALS: BP 128/65
[2018-03-07 12:12] VITALS: BP 145/77
[2018-03-07 15:32] VITALS: BP 140/65
[2018-03-07 19:40] VITALS: BP 118/65
[2018-03-07 23:11] VITALS: BP 126/68
[2018-03-08 06:28] LABS: BASOPHILS 0.2 % (0-2); EOSINOPHILS 2.2 % (0-7); HEMATOCRIT 35.9 % (42.0-54.0); HEMOGLOBIN 11.4 g/dL (13.5-17.5); IMMATURE GRANULOCYTES 0.7 % (0-5); MCH 29.2 pg (26.0-34.0); MCHC 31.8 g/dL (31.0-37.0); MCV 91.8 fL (80.0-100.0); MEAN PLATELET VOLUME 10.2 fL (7.4-10.4); MONOCYTES 7.5 % (2-11); NEUTROPHILS 70.4 % (40-80); PLATELET COUNT 230 10x3/uL (130-400); RBC 3.91 10x6/uL (4.20-6.10); RDW 13.7 % (11.5-14.5); WBC 5.9 10x3/uL (4.8-10.8)
[2018-03-08 06:56] LABS: ALBUMIN 2.7 g/dL (3.4-5.0); ALKALINE PHOSPHATASE 91 U/L (46-116); ALT (SGPT) 33 U/L (10-68); BILIRUBIN - TOTAL 0.19 mg/dL (0.2-1.3); CALC OSMOLALITY 278 mosm/kg (275-300); CALCIUM 8.5 mg/dL (8.5-10.1); CARBON DIOXIDE 28.3 mmol/L (21.0-32.0); CHLORIDE - SERUM 106 mmol/L (98-107); CREATININE - SERUM 0.9 mg/dL (0.6-1.3); GLUCOSE 85 mg/dL (74-106); POTASSIUM - SERUM 3.9 mmol/L (3.5-5.1); PROTEIN - SERUM 6.4 g/dL (6.4-8.2); SODIUM 140 mmol/L (136-145); UREA NITROGEN 15 mg/dL (7-18); eGFR NON AFRICAN AMERICAN > 90 mL/min (90-120)
[2018-03-08 07:58] VITALS: BP 130/68
[2018-03-08 12:43] VITALS: BP 132/70
[2018-03-08 16:20] VITALS: BP 138/66
[2018-03-08 19:34] VITALS: BP 124/65
[2018-03-08 23:25] VITALS: BP 128/62
[2018-03-09 04:31] VITALS: BP 136/72
[2018-03-09 06:22] LABS: BASOPHILS 0.2 % (0-2); HEMATOCRIT 34.5 % (42.0-54.0); LYMPHOCYTES 18.4 % (15-50); MCH 28.9 pg (26.0-34.0); MCHC 31.9 g/dL (31.0-37.0); MCV 90.8 fL (80.0-100.0); MEAN PLATELET VOLUME 10.1 fL (7.4-10.4); NEUTROPHILS 70.4 % (40-80); PLATELET COUNT 225 10x3/uL (130-400); RDW 13.3 % (11.5-14.5); WBC 5.9 10x3/uL (4.8-10.8)
[2018-03-09 07:09] LABS: ALBUMIN 2.6 g/dL (3.4-5.0); ALKALINE PHOSPHATASE 76 U/L (46-116); ALT (SGPT) 33 U/L (10-68); BILIRUBIN - TOTAL 0.23 mg/dL (0.2-1.3); CALC OSMOLALITY 280 mosm/kg (275-300); CALCIUM 8.1 mg/dL (8.5-10.1); CARBON DIOXIDE 26.5 mmol/L (21.0-32.0); CHLORIDE - SERUM 106 mmol/L (98-107); CREATININE - SERUM 0.9 mg/dL (0.6-1.3); GLUCOSE 80 mg/dL (74-106); POTASSIUM - SERUM 4.2 mmol/L (3.5-5.1); PROTEIN - SERUM 5.5 g/dL (6.4-8.2); SODIUM 142 mmol/L (136-145); eGFR NON AFRICAN AMERICAN > 90 mL/min (90-120)
[2018-03-09 07:10] LABS: UREA NITROGEN 11 mg/dL (7-18)
[2018-03-09 08:03] VITALS: BP 133/74
[2018-03-09] MEDS ORDERED: HYDROCODON-ACE1 EAC7 PO (11:00)
[2018-03-09 12:24] VITALS: BP 149/73
== END 2018-03-09 14:02 | disposition home health service (06) | DRG 857 ==
LOC: D.MS 11:23
PROVIDERS: Family Medicine; Surgery
PROC: 0JBL0ZZ Excision of Right Upper Leg Subcutaneous Tissue and Fascia, Open Approach (ICD-10-PCS; principal; 2018-03-05 11:00)
DX: T81.4XXA Infection following a procedure, initial encounter (principal); L03.314 Cellulitis of groin; D62 Acute posthemorrhagic anemia; L02.214 Cutaneous abscess of groin; G47.33 Obstructive sleep apnea (adult) (pediatric); I10 Essential (primary) hypertension; E86.0 Dehydration; K21.9 Gastro-esophageal reflux disease without esophagitis; J45.909 Unspecified asthma, uncomplicated; M17.11 Unilateral primary osteoarthritis, right knee; Z85.46 Personal history of malignant neoplasm of prostate

== ENCOUNTER 2018-04-12 12:50 | Observation (INO) | payer MEDICARE ==
[~2018-04-12] VITALS: Ht 190.5 cm; Wt 86.6 kg
[~2018-04-12 12:50] MED LIST changes: +HYDROCODON-ACE1 EAC7 PO
[2018-04-12] MEDS ORDERED: BENADRYL25 MG PO (13:16)
[2018-04-12 13:48] LABS: BASOPHILS 0.1 % (0-2); EOSINOPHILS 0.8 % (0-7); HEMATOCRIT 43.2 % (42.0-54.0); HEMOGLOBIN 14.1 g/dL (13.5-17.5); IMMATURE GRANULOCYTES 0.4 % (0-5); LYMPHOCYTES 27.3 % (15-50); MCH 29.4 pg (26.0-34.0); MCHC 32.6 g/dL (31.0-37.0); MCV 90.2 fL (80.0-100.0); MEAN PLATELET VOLUME 10.1 fL (7.4-10.4); MONOCYTES 7.5 % (2-11); NEUTROPHILS 63.9 % (40-80); PLATELET COUNT 226 10x3/uL (130-400); RBC 4.79 10x6/uL (4.20-6.10); RDW 13.5 % (11.5-14.5); WBC 8.5 10x3/uL (4.8-10.8)
[2018-04-12 14:05] LABS: ALBUMIN 3.7 g/dL (3.4-5.0); ALKALINE PHOSPHATASE 95 U/L (46-116); ALT (SGPT) 43 U/L (10-68); BILIRUBIN - TOTAL 0.37 mg/dL (0.2-1.3); CALC OSMOLALITY 281 mosm/kg (275-300); CALCIUM 8.8 mg/dL (8.5-10.1); CARBON DIOXIDE 26.8 mmol/L (21.0-32.0); CHLORIDE - SERUM 105 mmol/L (98-107); CREATININE - SERUM 1.1 mg/dL (0.6-1.3); GLUCOSE 81 mg/dL (74-106); POTASSIUM - SERUM 3.7 mmol/L (3.5-5.1); PROTEIN - SERUM 7.4 g/dL (6.4-8.2); SODIUM 141 mmol/L (136-145); UREA NITROGEN 18 mg/dL (7-18); eGFR NON AFRICAN AMERICAN 73 mL/min (90-120)
[2018-04-12 14:16] LABS: CKMB 0.6 U/L (0.0-3.6); CREATINE KINASE 46 UL (21-232)
[2018-04-12 14:17] LABS: TROPONIN-I < 0.017 ng/mL (0.000-0.060)
[2018-04-12 14:56] VITALS: BP 153/86
[2018-04-12 17:59] VITALS: BP 121/65
[2018-04-12 19:03] VITALS: BP 142/88
[2018-04-12 20:04] LABS: CKMB 0.7 U/L (0.0-3.6); CREATINE KINASE 46 UL (21-232)
[2018-04-12 20:10] LABS: TROPONIN-I < 0.017 ng/mL (0.000-0.060)
[2018-04-12 23:52] VITALS: BP 155/88; Ht 190.5 cm; Wt 86.6 kg
[2018-04-13 01:09] LABS: CKMB 0.6 U/L (0.0-3.6); CREATINE KINASE 47 UL (21-232)
[2018-04-13 01:10] LABS: TROPONIN-I < 0.017 ng/mL (0.000-0.060)
[2018-04-13 04:00] VITALS: BP 155/88
[2018-04-13 07:34] LABS: CKMB 0.5 U/L (0.0-3.6); CREATINE KINASE 37 UL (21-232); TROPONIN-I < 0.017 ng/mL (0.000-0.060)
[2018-04-13 09:30] VITALS: BP 121/71
[2018-04-13 09:54] LABS: ALBUMIN 3.4 g/dL (3.4-5.0); ALKALINE PHOSPHATASE 87 U/L (46-116); ALT (SGPT) 42 U/L (10-68); BILIRUBIN - TOTAL 0.39 mg/dL (0.2-1.3); CALC OSMOLALITY 273 mosm/kg (275-300); CALCIUM 8.3 mg/dL (8.5-10.1); CARBON DIOXIDE 24.3 mmol/L (21.0-32.0); CHLORIDE - SERUM 103 mmol/L (98-107); GLUCOSE 98 mg/dL (74-106); POTASSIUM - SERUM 4.3 mmol/L (3.5-5.1); PROTEIN - SERUM 6.5 g/dL (6.4-8.2); SODIUM 136 mmol/L (136-145); UREA NITROGEN 17 mg/dL (7-18); eGFR NON AFRICAN AMERICAN 82 mL/min (90-120)
[2018-04-13 10:23] LABS: HEMATOCRIT 39.7 % (42.0-54.0); HEMOGLOBIN 13.1 g/dL (13.5-17.5); MCH 29.2 pg (26.0-34.0); MCV 88.6 fL (80.0-100.0); NEUTROPHILS 72.4 % (40-80); PLATELET COUNT 188 10x3/uL (130-400); RBC 4.48 10x6/uL (4.20-6.10)
[2018-04-13 10:25] LABS: WBC 5.3 10x3/uL (4.8-10.8)
[2018-04-13] MEDS ORDERED: ESGIC TABLET1 TAB PO (11:35)
== END 2018-04-13 12:28 | disposition home or self-care (01) ==
LOC: D.ER 12:50 → D.EDHOLD 18:23 → D.M2 18:23 → OBSVTIME 18:23 → D.EDHOLD 18:23 → D.M2 21:01
PROVIDERS: Family Medicine
DX: R07.9 Chest pain, unspecified (principal); R51 Headache; M17.11 Unilateral primary osteoarthritis, right knee; I10 Essential (primary) hypertension; K21.9 Gastro-esophageal reflux disease without esophagitis; G47.33 Obstructive sleep apnea (adult) (pediatric); Z86.73 Personal history of transient ischemic attack (TIA), and cerebral infarction without residual deficits; Z85.46 Personal history of malignant neoplasm of prostate

== ENCOUNTER 2018-05-17 06:00 | Day surgery (SDC) | payer MEDICARE ==
[2018-05-16 15:32] LABS: BASOPHILS 0.2 % (0-2); EOSINOPHILS 1.1 % (0-7); HEMOGLOBIN 13.7 g/dL (13.5-17.5); IMMATURE GRANULOCYTES 0.4 % (0-5); LYMPHOCYTES 19.8 % (15-50); MCHC 33.4 g/dL (31.0-37.0); MCV 89.9 fL (80.0-100.0); MEAN PLATELET VOLUME 9.9 fL (7.4-10.4); MONOCYTES 16.2 % (2-11); NEUTROPHILS 62.3 % (40-80); PLATELET COUNT 207 10x3/uL (130-400); RBC 4.56 10x6/uL (4.20-6.10); RDW 13.2 % (11.5-14.5); WBC 5.6 10x3/uL (4.8-10.8)
[2018-05-16 15:46] LABS: APTT 27.6 SECONDS (22.8-39.4); PROTIME 12.8 SECONDS (11.6-15.0)
[~2018-05-17] VITALS: Ht 190.5 cm; Wt 105.7 kg
--- NOTE | ~2018-05-17 | OP ---
PATIENT NAME: JARAD KARIMI MEDICAL RECORD: [id number] :64 LOCATION:[facility] ADMISSION DATE: SURGEON: DEMETRI FIELD MD DATE OF OPERATION: 05/17/2018 SURGEON: Demetri Field MD ANESTHESIA: General anesthesia by the EZRA Russo CRNA. DIAGNOSIS: Bulbar urethral stricture. PROCEDURES: Cystoscopy, direct vision internal urethrotomy, Bloom catheter insertion over a guidewire. FINDINGS: Bulbar urethral stricture with the focal stricture being located close to, but not at the level of the artificial urinary sphincter. BLOOD LOSS: None. CLINICAL HISTORY: This is a 58-year-old male, who had prostate cancer. He was given a radical prostatectomy followed by external beam radiation. This was all given at [place]. After all these treatments, he developed male stress urinary incontinence. About a year ago, I placed an artificial urinary sphincter. It is working fine and he is very happy with the continence that he has. Lately, he has reported a slow urinary stream with splitting of the stream and spraying. This is reminiscent of a urethral stricture and therefore he comes today to have an incision of a stricture if I find one on cystoscopy. He was given Ancef applications development analyst to the OR. DESCRIPTION OF PROCEDURE: The patient was given induction of general anesthesia. He was placed in dorsal lithotomy position and prepped and draped. I deactivated his artificial urinary sphincter. Cystoscopy was performed using a 17-[place] cystoscope with 30-degree lens. Anterior urethra was normal. In the bulbar urethra, there was a focal stricture which was too tight for the scope to pass. A Sensor wire was passed through the stricture and into the bladder. We then removed the cystoscope and came back with the direct optic urethrotome. A cold knife was used to incise the stricture at the 12 o'clock position. I did not go full-thickness so as to perforate the urethra. Nevertheless, we cut entirely through the stricture scar tissue into a relatively healthier tissue. Once we were through the stricture, we were able to get through some other smaller strictures more proximally. Finally, the scope was able to enter into the bladder. The scope was then removed. Over the guidewire, a 14-[place]an yomba shoshone tip Bloom catheter was inserted into the bladder. Once the catheter was fully in the bladder, the balloon was inflated with 10 cc of sterile water. The guidewire was then completely removed. The patient will be going home with the Bloom catheter and the artificial sphincter remaining deactivated. This will allow the urethra to heal to the outside diameter of the catheter for a period of over a week. I will see him in followup in the office. At that time, the Bloom catheter will be removed and the artificial urinary sphincter will be reactivated. TRANSINT:[id number] Voice Confirmation ID: [id number] DOCUMENT ID: [id number] OPERATIVE REPORT [id number] JARAD KARIMI, DEMETRI Montesinos MD at 1017 CC: [id number] DICTATION DATE: 05/17/18811 LIQUID SUGAR FORTIFIER: 05/17/18 08 PRE [facility] [address] [place] [address]
[2018-05-17 05:51] VITALS: BP 134/74; Ht 190.5 cm; Wt 105.7 kg
[~2018-05-17 06:00] MED LIST changes: +BENADRYL25 MG PO; +ESGIC TABLET1 TAB PO; +PROZAC20 MG PO
[2018-05-28] MEDS ORDERED: TOPAMAX50 MG PO (16:38)
== END 2018-05-17 10:00 | disposition home or self-care (01) ==
LOC: D.OPS 06:00 → D.PAN 07:30 → D.OPS 07:30
PROVIDERS: Anesthesiology
DX: N35.912 Unspecified bulbous urethral stricture, male (principal); Z01.812 Encounter for preprocedural laboratory examination

== ENCOUNTER 2018-05-29 08:36 | Day surgery (SDC) | payer MEDICARE, MEDICAID ==
[~2018-05-29] VITALS: Ht 190.5 cm; Wt 105.7 kg
--- NOTE | ~2018-05-29 | OP ---
PATIENT NAME: JARAD KARIMI MEDICAL RECORD: [id number] :64 [facility] DATE: SURGEON: SANTOS FIELD MD DATE OF OPERATION: 05/29/2018 SURGEON: Santos Field MD ANESTHESIA: General anesthesia by Neena Castle CRNA. DIAGNOSIS: Infected artificial urinary sphincter. PROCEDURE: Removal of the artificial urinary sphincter. FINDINGS: Greenish discoloration of the artificial urinary sphincter from urethral perforation. BLOOD LOSS: Minimal. CLINICAL HISTORY: This is a 58-year-old male, who previously had a radical prostatectomy for prostate cancer. This was also followed up with adjuvant radiation therapy to the pelvis. As a result, he ended up with male urinary incontinence. In March of 2017, I inserted an artificial urinary sphincter. This device has been working very well for him. In the interim, he developed issues with a slow urinary stream. On cystoscopy, he had a bulbar urethral stricture. Recently, I attempted to incise the urethral stricture without perforating through the urethra. I thought that this was successfully done. However, he came back to my office with extreme scrotal swelling and difficulty voiding because he could not activate the pump anymore due to scrotal swelling and pain. He was having a lot of tenderness in the scrotum, perineum, and in the suprapubic area where the reservoir was located. Clearly, he is having an infection of his artificial urinary sphincter. Therefore, he comes today to have the device completely explanted. In the meantime, he has been taking a urinary analgesic, which turns his urine green. He is not allergic to any medications. He was given ampicillin and sulbactam IV international tax manager to the OR. DESCRIPTION OF PROCEDURE: The patient was given induction of general anesthesia in supine position. He was then placed in the dorsal lithotomy position and shaved, prepped and draped. I reopened his perineal incision. An incision about 3 cm long was made. I then went down through Soto's fascia. The periurethral tissues were identified and with gentle dissection parallel to the urethra, I was able to bluntly dissect the plane on either side of the urethra. Going proximal to my side of the incision, I identified the site of the urethral cuff for the artificial urinary sphincter. The tissues overlying the capsule was incised using the Bovie. Here we found a 1 cm nodule, which may be a silicone nodule or some other kind of foreign body, which came out clearly. I am not sure what caused this nodule to arise, but it was sent to pathology. The cuff was identified. The band, which keeps the cuff in place, was cut on one side to allow the cuff to be moved entirely out of the urethra. The cuff is discolored green, so most likely he has a microperforation somewhere in the urethra, which led to infection of the device. The tubing leading to the cuff was then cut. The cuff was sent to pathology. We then focused our attention to the suprapubic area. He has a suprapubic incision, which I reopened. This was also about 3-4 cm long. Going down to the rectus fascia, we could identify the tubing. By putting a hemostat on the tubing, we could identify the one going to the reservoir. By following along with cautery, I eventually opened up the OPERATIVE REPORT [id number] JARAD KARIMI rectus fascia sufficiently that the entire reservoir in inflated state could still be pulled out. Then, following the other tubing distally, we managed to pull out the tubing going down to the cuff. Finally, by little more dissection, we managed to pull out the entire pump in the scrotum. The entire device has been removed. The wound was irrigated out with saline. The rectus fascia was closed using simple interrupted 3-0 Monocryl. The simple interrupted 3-0 Monocryl was also used to close Soto's fascia and the peritoneum. The abdominal skin was closed with enedina. The perineal skin was closed with simple interrupted 4-0 Monocryl. Fluffs and mesh panties were given to him. I will keep the Bloom catheter in to allow the urethra to heal for a week. The patient will be going home with pain medications today. I will see him in followup next week to remove the Bloom catheter. He wants to have the artificial urinary sphincter placed back in as soon as possible. I will let him heal for 3 months and then plan on reinsertion of a new artificial urinary sphincter. TRANSINT:[id number] Voice Confirmation ID: [id number] DOCUMENT ID: [id number] SANTOS FIELD MD at 1522 CC: [id number] DICTATION DATE: 05/29/18 141 SAGGER MAKER: 05/29/18 1434 REG [facility] [address] [id number]
[~2018-05-29 08:36] MED LIST changes: +TOPAMAX50 MG PO
[2018-05-29 09:43] LABS: HEMATOCRIT 39.7 % (42.0-54.0); HEMOGLOBIN 13.1 g/dL (13.5-17.5); MCH 29.8 pg (26.0-34.0); MCV 90.4 fL (80.0-100.0); MEAN PLATELET VOLUME 9.5 fL (7.4-10.4); RBC 4.39 10x6/uL (4.20-6.10); RDW 13.3 % (11.5-14.5); WBC 6.3 10x3/uL (4.8-10.8)
[2018-05-29] MEDS ORDERED: BUTALB-APAP-CA1 EACH PO (10:05)
[2018-05-29] MEDS ORDERED: KEFLEX500 MG (10:05)
[2018-05-29 10:45] VITALS: BP 100/54
[2018-05-29 10:51] VITALS: BP 100/54; Ht 190.5 cm; Wt 105.7 kg
== END 2018-05-29 16:30 | disposition home or self-care (01) ==
LOC: D.OPS 08:36 → D.PAN 09:30 → D.OPS 11:45 → D.PAN 11:45 → D.OPS 16:30
PROVIDERS: Anesthesiology
DX: T83.591A Infection and inflammatory reaction due to implanted urinary sphincter, initial encounter (principal)

== ENCOUNTER 2018-06-02 17:31 | Emergency (ER) | payer MEDICARE, MEDICAID ==
[~2018-06-02] VITALS: Ht 190.5 cm; Wt 105.9 kg
[~2018-06-02 17:31] MED LIST changes: +BUTALB-APAP-CA1 EACH PO; +KEFLEX500 MG
[2018-06-02 17:46] VITALS: Ht 190.5 cm; Wt 105.9 kg
[2018-06-02 18:10] LABS: BASOPHILS 0.4 % (0-2); EOSINOPHILS 2.5 % (0-7); HEMATOCRIT 40.3 % (42.0-54.0); HEMOGLOBIN 13.5 g/dL (13.5-17.5); IMMATURE GRANULOCYTES 0.2 % (0-5); LYMPHOCYTES 19.8 % (15-50); MCH 29.9 pg (26.0-34.0); MCHC 33.5 g/dL (31.0-37.0); MCV 89.2 fL (80.0-100.0); MEAN PLATELET VOLUME 9.8 fL (7.4-10.4); MONOCYTES 9.4 % (2-11); NEUTROPHILS 67.7 % (40-80); RBC 4.52 10x6/uL (4.20-6.10); RDW 12.9 % (11.5-14.5); WBC 5.6 10x3/uL (4.8-10.8)
[2018-06-02 18:10] LABS: APPEARANCE CLOUDY (CLEAR); BILIRUBIN NEGATIVE (NEGATIVE); COLOR YELLOW (YELLOW); GLUCOSE NEGATIVE (NEGATIVE); KETONE NEGATIVE (NEGATIVE); NITRITE NEGATIVE (NEGATIVE); PROTEIN 2+ mg/dL (NEGATIVE); RED CELLS - URINE >50 /hpf (0-5); UROBILINOGEN NORMAL (NORMAL); WHITE CELLS - URINE NSEEN /hpf (0-5)
[2018-06-02 18:11] LABS: BACTERIA NONE SEEN /hpf (NONE SEEN); CALCIUM OXALATE CRYSTALS 0-5 /hpf (NONE SEEN); EPITHELIAL CELLS NSEEN /hpf (0-5)
[2018-06-02 18:11] LABS: PLATELET COUNT 275 10x3/uL (130-400)
[2018-06-02 18:30] LABS: ALBUMIN 3.2 g/dL (3.4-5.0); ANION GAP 12.5 mmol/L (8-16); BILIRUBIN - TOTAL 0.17 mg/dL (0.2-1.3); CARBON DIOXIDE 24.5 mmol/L (21.0-32.0); CREATININE - SERUM 1.1 mg/dL (0.6-1.3); PROTEIN - SERUM 7.3 g/dL (6.4-8.2)
[2018-06-02] MEDS ORDERED: VALIUM5 MG PO (19:01)
[2018-06-02] MEDS ORDERED: TORADOL10 MG PO (19:01)
[2018-06-02 19:10] VITALS: BP 152/89
== END 2018-06-02 19:11 | disposition home or self-care (01) ==
LOC: D.ER 17:31
PROVIDERS: Family Medicine
DX: N32.89 Other specified disorders of bladder (principal); G89.18 Other acute postprocedural pain; I10 Essential (primary) hypertension; Z85.46 Personal history of malignant neoplasm of prostate

== ENCOUNTER 2018-07-03 07:12 | Day surgery (SDC) | payer MEDICARE, MEDICAID ==
[~2018-07-03] VITALS: Ht 190.5 cm; Wt 104.3 kg
--- NOTE | ~2018-07-03 | OP ---
PATIENT NAME: JARAD KARIMI MEDICAL RECORD: [id number] :64 LOCATION:[facility] ADMISSION DATE: SURGEON: SANTOS FIELD MD DATE OF OPERATION: 07/03/2018 SURGEON: Santos Field MD NATIONAL VAN TRUCK DRIVER: Jaun Funes. ANESTHESIA: General anesthesia by Chad Escobar CRNA. DIAGNOSIS: Recurrent balanitis with phimosis. PROCEDURE: Circumcision. FINDINGS: Phimosis with a constriction band. SPECIMENS: Foreskin. ESTIMATED BLOOD LOSS: None. CLINICAL HISTORY: This is a 58-year-old male, who previously had a radical prostatectomy for prostate cancer. This was followed with pelvic radiation. He has urinary incontinence. He then had an artificial urinary sphincter, which I placed. This worked well for over a year. He developed a urethral stricture and after I incised the urethral stricture, he developed infection of the urinary sphincter, which had to be removed. In the interim, he has issues with recurrent balanitis and phimosis. He comes to have a circumcision done so that when he does go to get the artificial sphincter placed back in there will be no ongoing source of infection from this problem. HE IS ALLERGIC TO NEOMYCIN. He was given Ancef director economic to the OR. DESCRIPTION OF PROCEDURE: The patient was given induction of general anesthesia in supine position. He was then shaved, prepped and draped. A 2-0 nylon suture was placed through the glans penis and used for traction. The mucosal foreskin had the line of the incision marked with a marking pen about 5 mm proximal to the marte of the glans. The incision was made using a #15 scalpel. The foreskin was then placed back in the forward position and the cutaneous foreskin was marked in the corresponding location with a marking pen. The incision was made with #15-blade. Using the Metzenbaum scissors, we were able to remove the dartos fascia and removed the foreskin specimen to pathology for diagnosis. Any bleeding that we encountered in the dartos was then cauterized using the cautery. The skin was reapproximated using simple interrupted 4-0 Vicryl. Once the procedure was terminated, I gave a dorsal penile nerve block using 2% lidocaine without epinephrine. This was placed on either side of the dorsal nerve at the base of the penis. A Kerlix dressing was then placed slightly around the penile shaft to give some compression, but not create any compromise in the blood supply. The patient will be going home today. I will see him in followup next week to check on wound healing. TRANSINT:[id number] Voice Confirmation ID: [id number] DOCUMENT ID: [id number] OPERATIVE REPORT [id number] JARAD KARMII, SANTOS Montesinos MD at 1541 CC: [id number] DICTATION DATE: 07/03/18 1223 HAIR BOILER OPERATOR: 07/03/18 1458 REG [facility] [address] [place] [address]
[~2018-07-03 07:12] MED LIST changes: +TORADOL10 MG PO; +VALIUM5 MG PO
[2018-07-03 07:33] LABS: BASOPHILS 0.3 % (0-2); EOSINOPHILS 2.3 % (0-7); HEMATOCRIT 41.3 % (42.0-54.0); HEMOGLOBIN 13.5 g/dL (13.5-17.5); IMMATURE GRANULOCYTES 0.3 % (0-5); LYMPHOCYTES 21.4 % (15-50); MCH 30.1 pg (26.0-34.0); MCHC 32.7 g/dL (31.0-37.0); MEAN PLATELET VOLUME 9.9 fL (7.4-10.4); MONOCYTES 13.8 % (2-11); NEUTROPHILS 61.9 % (40-80); PLATELET COUNT 224 10x3/uL (130-400); RBC 4.49 10x6/uL (4.20-6.10); RDW 13.3 % (11.5-14.5); WBC 3.4 10x3/uL (4.8-10.8)
[2018-07-03 07:44] LABS: APTT 30.9 SECONDS (22.8-39.4); INR 1.11 (0.85-1.17); PROTIME 13.8 SECONDS (11.6-15.0)
[2018-07-03 08:46] VITALS: BP 111/64; Ht 190.5 cm; Wt 104.3 kg
[2018-07-03] MEDS ORDERED: TYLENOL W/CODEI1 TAB PO (14:05)
== END 2018-07-03 14:35 | disposition home or self-care (01) ==
LOC: D.OPS 07:12 → D.PAN 09:30 → D.OPS 11:15 → D.PAN 11:15 → D.OPS 14:35
PROVIDERS: Anesthesiology
DX: N48.1 Balanitis (principal); N47.1 Phimosis; Z01.812 Encounter for preprocedural laboratory examination

== ENCOUNTER → 2018-07-12 10:37 | Outpatient (CLI) | payer MEDICARE, MEDICAID ==
[2018-07-03 08:46] VITALS: BMI 28.8
[~2018-07-12 10:37] MED LIST changes: +TYLENOL W/CODEI1 TAB PO
== END | disposition home or self-care (01) ==
LOC: D.CT 10:30
DX: R10.9 Unspecified abdominal pain (principal)

== ENCOUNTER → 2018-08-11 | Emergency (ER) | payer MEDICARE, MEDICAID ==
[~2018-08-11] VITALS: Ht 190.5 cm; Wt 104.5 kg
[2018-08-11 11:33] VITALS: Ht 190.5 cm; Wt 104.5 kg
[2018-08-11 12:50] LABS: BASOPHILS 0.1 % (0-2); EOSINOPHILS 0.4 % (0-7); HEMATOCRIT 44.5 % (42.0-54.0); HEMOGLOBIN 14.4 g/dL (13.5-17.5); IMMATURE GRANULOCYTES 0.4 % (0-5); LYMPHOCYTES 9.4 % (15-50); MCH 30.3 pg (26.0-34.0); MCHC 32.4 g/dL (31.0-37.0); MCV 93.7 fL (80.0-100.0); MEAN PLATELET VOLUME 10.4 fL (7.4-10.4); MONOCYTES 6.1 % (2-11); NEUTROPHILS 83.6 % (40-80); PLATELET COUNT 199 10x3/uL (130-400); RBC 4.75 10x6/uL (4.20-6.10); RDW 12.9 % (11.5-14.5); WBC 9.5 10x3/uL (4.8-10.8)
[2018-08-11 13:05] LABS: APPEARANCE CLEAR (CLEAR); BILIRUBIN NEGATIVE (NEGATIVE); COLOR YELLOW (YELLOW); GLUCOSE NEGATIVE (NEGATIVE); KETONE NEGATIVE (NEGATIVE); NITRITE NEGATIVE (NEGATIVE); PROTEIN 1+ mg/dL (NEGATIVE); SPECIFIC GRAVITY 1.015 (1.005-1.020); UROBILINOGEN NORMAL (NORMAL)
[2018-08-11 13:07] LABS: ALBUMIN 3.8 g/dL (3.4-5.0); ANION GAP 13.7 mmol/L (8-16); BILIRUBIN - TOTAL 0.36 mg/dL (0.2-1.3); CALCIUM 9.1 mg/dL (8.5-10.1); CARBON DIOXIDE 25.1 mmol/L (21.0-32.0); CREATININE - SERUM 1.3 mg/dL (0.6-1.3); POTASSIUM - SERUM 4.8 mmol/L (3.5-5.1); PROTEIN - SERUM 7.7 g/dL (6.4-8.2)
[2018-08-11 13:09] LABS: WHITE CELLS - URINE 0-5 /hpf (0-5)
[2018-08-11 13:10] LABS: BACTERIA FEW /hpf (NONE SEEN); EPITHELIAL CELLS 0-5 /hpf (0-5)
[2018-08-11 16:39] VITALS: BP 142/64
== END | disposition home or self-care (01) ==
LOC: D.ER 11:25
PROVIDERS: Family Medicine
DX: N20.0 Calculus of kidney (principal); I10 Essential (primary) hypertension

== ENCOUNTER 2018-09-04 09:07 | Day surgery (SDC) | payer MEDICARE, MEDICAID ==
[~2018-09-04] VITALS: Ht 190.5 cm; Wt 104.3 kg
[~2018-09-04 09:07] MED LIST changes: +ALBUTEROL1.25 MG/3 INH; +VENTOLIN HFA18 GM INH
[2018-09-04 09:42] LABS: HEMATOCRIT 41.7 % (42.0-54.0); HEMOGLOBIN 13.4 g/dL (13.5-17.5); MCH 29.8 pg (26.0-34.0); MCHC 32.1 g/dL (31.0-37.0); MCV 92.9 fL (80.0-100.0); MEAN PLATELET VOLUME 10.3 fL (7.4-10.4); RBC 4.49 10x6/uL (4.20-6.10); RDW 12.8 % (11.5-14.5); WBC 3.9 10x3/uL (4.8-10.8)
[2018-09-04 11:02] VITALS: BP 117/66; Ht 190.5 cm; Wt 104.3 kg
--- NOTE | 2018-09-05 11:37 | OP ---
PATIENT NAME: JARAD KARIMI MEDICAL RECORD: [id number] :64 LOCATION:[facility] ADMISSION DATE: SURGEON: SANTOS FIELD MD DATE OF OPERATION: 09/04/2018 SURGEON: Santos Field MD ANESTHESIA: General anesthesia by Nikolai Hernadez CRNA DIAGNOSIS: Male stress urinary incontinence. PROCEDURE: 1. Cystoscopy. 2. Insertion of artificial urinary sphincter using a 61-70 cm of water pressure regulating balloon and a 4.5 cm cuff. The cuff is in the bulbar urethra just distal to the curve of the urethra. FINDINGS: On cystoscopy, previous site of urethral perforation was seen. No urethral strictures is seen. Radiation neovascularity is seen in the bladder. No bladder tumors are present. No urethral injury during the dissection. BLOOD LOSS: Minimal. CLINICAL HISTORY: This is a 58-year-old male who previously had a radical prostatectomy for prostate cancer. He was also treated with adjuvant radiation therapy. He has male stress urinary incontinence. About 2 years ago, I placed an artificial urinary sphincter. This was working quite successfully until the summer, he had problems with the urethral stricture. I tried to incise the urethral stricture and this lead to infection of the artificial urinary sphincter. The entire sphincter had to be removed. He has waited for 3 months to allow everything to heal. There is no sign of infection now. In the interim, he also had a circumcision done to treat phimosis. He comes today to have the artificial urinary sphincter installed. HE IS ALLERGIC TO NEOMYCIN. I gave him gentamicin and Ancef forensic economist to the OR. Just prior to going to the operating room, he was complaining of left flank pain. He does have a history of kidney stones. I obtained a KUB and I did not see any radiodense stones. He has a previous history of calcium kidney stones. 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 Most likely this is just due to his back injury. Therefore, we will proceed with surgery. DESCRIPTION OF PROCEDURE: The patient was given induction of general anesthesia. He was then placed into dorsal lithotomy and prepped and draped. I placed a 2-0 nylon suture through the left hemiscrotum and anchored it to the drapes in order to elevate the scrotum out of the field. A Bloom catheter 14-[place] silicone type was placed into the bladder and clamped off. I reopened his midline perineal incision at the level of the bulb of the urethra, but I could palpate through the perineal skin. The incision was about 3 cm in length. I then went down through the bulbospongiosus muscle through its midline. This was done using the #15 blade. Eventually, I converted to the Metzenbaum scissors. The corpus spongiosum was now visible. Using fingers for retraction, I dissected gently all around the corpus spongiosum with very small Metzenbaum scissors. Eventually, it turned out that we are in the level of the bulbar urethra where the urethra just comes out of the curve and merges with the corpus cavernosa, i.e. we at the level of the decussation of the corpus cavernosa. I OPERATIVE REPORT [id number] JARAD KARIMI should note that prior to starting this procedure, I did perform cystoscopy to make sure there were no urethral strictures. There are no urethral strictures and the area of the previous urethral perforation was seen, but it has completely healed over. With gentle dissection sharply through the dorsum of the corpus spongiosum, I managed to free it from the undersurface of the pubic bone. The opening was wide enough to be able to admit my finger from one side to the other through the dorsal side of the bulbar urethra. At this point, we packed the incision with a Ray-Jason sponge. A 20 cc of methylene blue were inserted into the penile urethra using a blunt needle adjacent to the Bloom catheter. We then examined the sponge and the bulbar urethra and found no evidence of blue staining to indicate a urethral perforation. We then carried down with our surgery. The urethra was sized by placing the sizers through. The urethra size was found to be 4.5 cm. At this point, I turned my attention to the suprapubic area. This patient has a 2.5 to 3 cm transverse suprapubic incision from his previous surgery, right at the level of the symphysis pubis in the midline. This incision was reopened. With blunt dissection, I was able to get down to the rectus fascia. With further blunt dissection, I was able to get through into the space of Retzius on the right pararectal prevesical fossa. Blunt dissection was used here to make a space for the pressure regulating balloon. The pressure regulating balloon was then inserted into the prevesical space. The balloon was inflated with 23 mL of normal saline. A rubber-shod clamp was used to prevent the fluid from leaking out. We then placed our cuff around the urethra. It was placed so that the connection point could be rotated to the patient's right lateral side of the urethra. From there, a tonsil clamp was used to go from the suprapubic incision down to the perineal dissection space and the tubing from the cuff was brought up into the suprapubic space. The tubing has a rubber shod on it to prevent loss of fluid from the cuff. The cuff was connected and the excess tab of the connector was cut off. This presents a good uncomfortable fit against the urethra. The cuff was rotated so that the connecting part would be lateral to the urethra and so the patient would not be sitting on the connector. Finally, through the suprapubic incision and using a sponge stick without the sponge on it, this blunt dissection was made into the right hemiscrotum. Along the same path, we put in the artificial urinary sphincter pump. It was placed in the right hemiscrotum with the deactivation and button placed laterally. A Vicky forceps was placed through the scrotal skin to hold the pump down. We then made our connections. The cuff tubing was connected to the plane tubing of the pump. The balloon tubing, which is striated, was also connected to the striated tubing of the pump. These were done with quick lock connectors. Once the connections were secure, the wounds are irrigated out with normal saline containing gentamicin. Two layer closures were made at each site. On the suprapubic site, a 3-0 Vicryl was used to reapproximate the Camper's fascia. The skin was then closed using simple interrupted 4-0 Vicryl. In the perineal site, 3-0 Vicryl was used in simple interrupted fashion to reapproximate the bulbospongiosus muscle. The skin was then closed using simple interrupted 4-0 Monocryl. The cuff was deactivated. We allowed the pump to fill completely and then the pump was activated until the bulb of the pump was quite flat. We then allowed fluid to refill into the bulb of the pump [address] then the deactivation button was pushed down. The patient's Bloom catheter was then put to bag drainage. Dressings of Telfa and Tegaderm were placed over the incision sites. I will see the patient in followup in 2 weeks' time. I am giving him a prescription for Cipro for 5 days' time. His organism in the summer was sensitive to Cipro. I am also giving him a prescription for [place] 5/325 for pain control. TRANSINT:[id number] Voice Confirmation ID: [id number] DOCUMENT ID: [id number] OPERATIVE REPORT [id number] JARAD KARIMI, SANTOS Montesinos MD at 1137 CC: [id number] DICTATION DATE: 09/04/18 1503 SCHOOL PSYCHOLOGICAL EXAMINER: 09/04/18 1627 [facility] 09/04/[id number] [place] [address]
== END 2018-09-04 16:35 | disposition home or self-care (01) ==
LOC: D.OPS 09:07 → D.PAN 09:30 → D.OPS 11:30 → D.PAN 11:45 → D.OPS 16:35
PROVIDERS: Anesthesiology
DX: N39.3 Stress incontinence (female) (male) (principal); Z88.1 Allergy status to other antibiotic agents; Z01.812 Encounter for preprocedural laboratory examination

== ENCOUNTER → 2018-09-21 18:30 | Outpatient (CLI) | payer MEDICARE, MEDICAID ==
[2018-09-04 11:02] VITALS: BMI 28.8
== END | disposition home or self-care (01) ==
LOC: D.LABREF 18:30
DX: N39.0 Urinary tract infection, site not specified (principal)

== ENCOUNTER 2019-06-14 08:54 | Day surgery (SDC) | payer MEDICARE, MEDICAID ==
[~2019-06-14] VITALS: Ht 190.5 cm; Wt 102.5 kg
[2019-06-14 09:53] LABS: BASOPHILS 0.2 % (0-2); EOSINOPHILS 1.5 % (0-7); HEMATOCRIT 43.4 % (42.0-54.0); HEMOGLOBIN 13.7 g/dL (13.5-17.5); IMMATURE GRANULOCYTES 0.2 % (0-5); LYMPHOCYTES 24.4 % (15-50); MCH 29.1 pg (26.0-34.0); MCHC 31.6 g/dL (31.0-37.0); MCV 92.3 fL (80.0-100.0); NEUTROPHILS 64.7 % (40-80); RDW 13.5 % (11.5-14.5)
[2019-06-14 10:09] LABS: PLATELET COUNT 235 10x3/uL (130-400)
[2019-06-14 10:11] LABS: APTT 29.4 SECONDS (22.8-39.4); INR 1.02 (0.85-1.17); PROTIME 12.9 SECONDS (11.6-15.0)
[2019-06-14 10:18] LABS: ALBUMIN 3.9 g/dL (3.4-5.0); ALKALINE PHOSPHATASE 118 U/L (46-116); ALT (SGPT) 30 U/L (10-68); BILIRUBIN - TOTAL 0.42 mg/dL (0.2-1.3); CALC OSMOLALITY 277 mosm/kg (275-300); CALCIUM 8.9 mg/dL (8.5-10.1); CARBON DIOXIDE 27.7 mmol/L (21.0-32.0); CHLORIDE - SERUM 105 mmol/L (98-107); CREATININE - SERUM 0.8 mg/dL (0.6-1.3); GLUCOSE 86 mg/dL (74-106); POTASSIUM - SERUM 4.6 mmol/L (3.5-5.1); PROTEIN - SERUM 7.5 g/dL (6.4-8.2); SODIUM 139 mmol/L (136-145); UREA NITROGEN 14 mg/dL (7-18); eGFR NON AFRICAN AMERICAN > 90 mL/min (90-120)
[2019-06-14 13:23] VITALS: Ht 190.5 cm; Wt 102.5 kg
--- NOTE | 2019-06-14 16:30 | NUR ---
PIV DC'D WITH TIP INTACT, PATIENT HAS INSTRUCTIONS TO RETURN MONDAY FOR SURGERY WITH DR CASTANEDA
== END 2019-06-14 16:30 | disposition home or self-care (01) ==
LOC: D.OPS 08:54
PROVIDERS: Anesthesiology; ATTEND Orthopaedic Surgery
DX: S53.31XA Traumatic rupture of right ulnar collateral ligament, initial encounter (principal); X58.XXXA Exposure to other specified factors, initial encounter; Z53.9 Procedure and treatment not carried out, unspecified reason

== ENCOUNTER 2019-06-18 08:52 | Day surgery (SDC) | payer MEDICARE ==
[~2019-06-18] VITALS: Ht 190.5 cm; Wt 102.5 kg
[2019-06-18 11:21] VITALS: BP 157/79; Ht 190.5 cm; Wt 102.5 kg
[2019-06-18] MEDS ORDERED: PERCOCET 5-3251 TAB PO (13:14)
[2019-06-18] MEDS ORDERED: DURICEF500 MG PO (13:14)
--- NOTE | 2019-06-21 13:57 | OP ---
PATIENT NAME: XAVIER KARIMI MEDICAL RECORD: [id number] :64 LOCATION:[facility] ADMISSION DATE: SURGEON: TRES CASTANEDA DO DATE OF OPERATION: 06/18/2019 PROCEDURE PERFORMED: Left thumb ulnar collateral ligament repair of metacarpophalangeal joint. PREOPERATIVE DIAGNOSIS: Left thumb ulnar collateral ligament tear. POSTOPERATIVE DIAGNOSIS: Left thumb ulnar collateral ligament tear. INDICATIONS: Mr. Xavier Karimi is a 59-year-old male who about 2 weeks ago sustained an accident where he tore his thumb ulnar collateral ligament. He was to have an MRI and it had to be canceled due to lack of a velasco staff last week and put on today. It is 2 weeks out. I informed him that I will try to repair it. Due to the fact it had been 2 weeks, the tissue may not be amenable to repair and he is also aware of the fact that damage to nerve in the area may give him some numbness in the thumb, infection, bleeding, need for further surgery, tightness of the thumb, and lack of motion. He was aware of those risks and he signed the consent. SURGEON: Tres Castaneda DO DESCRIPTION OF PROCEDURE: The patient was taken to the operative suite, laid in the supine position. After getting sedated and then LMA was placed, he was given 2 grams of Ancef. The left upper extremity was prepped and draped in sterile fashion. Timeout was performed. Everyone was in agreement with the correct side, site, patient, and procedure. Then, the left upper extremity was exsanguinated with an Esmarch and tourniquet was inflated to 250 mmHg and was up for 34 minutes. The incision began over the ulnar side of the metacarpophalangeal joint of the thumb. Nerve was retracted and dissection was made down to the adductor aponeurosis. This was incised and then the ulnar collateral ligament was exposed. Then, a 1.0 JuggerKnot anchor was drilled for on the metacarpal side and the 2 limbs were sutured up and down on the ulnar collateral ligament that had been freed up and had a good repair. The capsule was then partially closed as well as the adductor aponeurosis in a single fashion. The tourniquet was then let down. The site was injected with 0.25% Marcaine with epinephrine, approximately 7 mL. The skin was then closed with 5-0 Monocryl inverted interrupted fashion, 5-0 Monocryl run on the skin. Steri-Strips, Adaptic, 4 x 4's, and a thumb spica splint was placed on the patient, secured with an Epifanio wrap. He was then awakened and taken to recovery in stable condition. He had good stability with testing of the UCL following the repair and the thumb could abduct also to the fifth metacarpal, shaft noting it was not too tight on the repair. He was then awakened and taken to recovery in stable condition. BLOOD LOSS: Minimal. COMPLICATION: None. TRANSINT:[id number] Voice Confirmation ID: [id number] DOCUMENT ID: [id number] OPERATIVE REPORT [id number] XAVIER KARIMI,TRES Cabezas DO at 1357 CC: [id number] DICTATION DATE: 06/18/19 1313 NUCLEAR EQUIPMENT DESIGN ENGINEER: 06/18/19 1533 [facility] 06/18/[address] [place] [address]
== END 2019-06-18 15:10 | disposition home or self-care (01) ==
LOC: D.OPS 08:52
PROVIDERS: ATTEND Orthopaedic Surgery
DX: S63.642A Sprain of metacarpophalangeal joint of left thumb, initial encounter (principal); X58.XXXA Exposure to other specified factors, initial encounter

== ENCOUNTER 2019-07-03 17:07 | Inpatient (IN) | payer MEDICARE ==
[~2019-07-03] VITALS: Ht 190.5 cm; Wt 106.4 kg
[~2019-07-03 17:07] MED LIST changes: +DURICEF500 MG PO; +PERCOCET 5-3251 TAB PO
[2019-07-03 19:13] LABS: BASOPHILS 0.3 % (0-2); EOSINOPHILS 0.8 % (0-7); HEMATOCRIT 43.8 % (42.0-54.0); HEMOGLOBIN 13.9 g/dL (13.5-17.5); IMMATURE GRANULOCYTES 0.2 % (0-5); LYMPHOCYTES 18.3 % (15-50); MCH 29.2 pg (26.0-34.0); MCHC 31.7 g/dL (31.0-37.0); MEAN PLATELET VOLUME 10.5 fL (7.4-10.4); MONOCYTES 11.2 % (2-11); NEUTROPHILS 69.2 % (40-80); PLATELET COUNT 250 10x3/uL (130-400); RBC 4.76 10x6/uL (4.20-6.10); RDW 13.3 % (11.5-14.5)
[2019-07-03 19:35] VITALS: BP 160/74
[2019-07-03 19:55] LABS: ALKALINE PHOSPHATASE 122 U/L (46-116); ALT (SGPT) 28 U/L (10-68); BILIRUBIN - TOTAL 0.41 mg/dL (0.2-1.3); CALC OSMOLALITY 276 mosm/kg (275-300); CALCIUM 9.1 mg/dL (8.5-10.1); CARBON DIOXIDE 24.8 mmol/L (21.0-32.0); CHLORIDE - SERUM 106 mmol/L (98-107); CREATININE - SERUM 0.9 mg/dL (0.6-1.3); GLUCOSE 96 mg/dL (74-106); POTASSIUM - SERUM 4.2 mmol/L (3.5-5.1); PROTEIN - SERUM 7.4 g/dL (6.4-8.2); SODIUM 141 mmol/L (136-145); eGFR NON AFRICAN AMERICAN > 90 mL/min (90-120)
[2019-07-03 20:07] LABS: UREA NITROGEN 1 mg/dL (7-18)
[2019-07-03 20:14] VITALS: BP 138/67
[2019-07-03 22:08] VITALS: BP 148/77; BMI 29.3
[2019-07-04] VITALS: BP 117/63
--- NOTE | 2019-07-04 02:36 | NUR ---
PATIENT ARIVED IN WHEEL CHAIR WITH STAFF AND SISTER. RIGHT ELBOW DISLOCATED HE IS ALERT AND ORENTED ABLE TO VOICE NEEDS AND WANTS TO STAFF.PATIENT HAS A SPHINCTER PLACED IN BLADER AND A BUTTON TO OPEN IT PLACED IN SCROMTOM.REMAINS ON BEDREST
[2019-07-04 04:00] VITALS: BP 134/61
[2019-07-04 06:20] LABS: BASOPHILS 0.3 % (0-2); EOSINOPHILS 2.7 % (0-7); HEMATOCRIT 38.7 % (42.0-54.0); IMMATURE GRANULOCYTES 0.3 % (0-5); LYMPHOCYTES 23.7 % (15-50); MCH 28.9 pg (26.0-34.0); MCV 93.3 fL (80.0-100.0); MEAN PLATELET VOLUME 10.5 fL (7.4-10.4); MONOCYTES 12.5 % (2-11); NEUTROPHILS 60.5 % (40-80); PLATELET COUNT 203 10x3/uL (130-400); RBC 4.15 10x6/uL (4.20-6.10); RDW 13.4 % (11.5-14.5)
[2019-07-04 06:22] LABS: WBC 3.8 10x3/uL (4.8-10.8)
[2019-07-04 06:39] LABS: ALBUMIN 3.2 g/dL (3.4-5.0); ALKALINE PHOSPHATASE 102 U/L (46-116); ALT (SGPT) 22 U/L (10-68); BILIRUBIN - TOTAL 0.43 mg/dL (0.2-1.3); CALC OSMOLALITY 282 mosm/kg (275-300); CARBON DIOXIDE 25.7 mmol/L (21.0-32.0); CHLORIDE - SERUM 108 mmol/L (98-107); CREATININE - SERUM 0.8 mg/dL (0.6-1.3); GLUCOSE 102 mg/dL (74-106); POTASSIUM - SERUM 4.1 mmol/L (3.5-5.1); PROTEIN - SERUM 6.3 g/dL (6.4-8.2); SODIUM 141 mmol/L (136-145); UREA NITROGEN 19 mg/dL (7-18); eGFR NON AFRICAN AMERICAN > 90 mL/min (90-120)
--- NOTE | 2019-07-04 06:55 | NUR ---
ALERT AND ORIENTED, RESTING IN BED EYES OPEN. NO C/O PAIN. NO S/S OF ACUTE DISTRESS NOTED. REDNESS AND SWELLING TO RIGHT ELBOW. NPO SINCE MIDNIGHT. SPINCTER BUTTON IN SCROTUM, USES URINAL. IV TO LEFT FOREARM, NS INFUSING @ 125ML/HR. SITE PATENT WITHOUT REDNESS OR SWELLING. DENIES ANY NEEDS AT THIS TIME. CALL LIGHT IN REACH. WILL CONTINUE TO MONITOR.
[2019-07-04 08:42] VITALS: BP 140/74
[2019-07-04 11:03] VITALS: Ht 190.5 cm; Wt 106.4 kg
[2019-07-04 12:29] VITALS: BP 128/60
[2019-07-04 17:35] VITALS: BP 106/58
--- NOTE | 2019-07-04 17:43 | NUR ---
I have reviewed this patient and I concur with the Shift Assessment completed by the Licensed Practical Nurse today this shift.
--- NOTE | 2019-07-04 18:32 | NUR ---
ALERT AND ORIENTED, RESTING IN BED WITH EYES OPEN. NO C/O PAIN. NO S/S OF ACUTE DISTRESS. DENIES ANY NEEDS AT THIS TIME. CALL LIGHT IN REACH. WILL CONTINUE TO MONITOR.
[2019-07-04 20:29] VITALS: BP 104/52
--- NOTE | 2019-07-05 00:18 | NUR ---
PATIENT IS ALERT AND ORENTED ABLE TO VOICE NEEDS AND WANTS TO STAFF, ON ROOM AIR , SLING IN PLACE TO RIGHT ARM. IV TO LEFT FA WITH NS PER ORDERS. STATED THAT THERE ARE PLAINS TO SEND HIM TO BADGER FOR SURGERY TO THE SAME WHO DID IT LAST. RESTING WITH NO NEEDS OR DISTRESS AT THIS TIME WATER AND CALL LIGHT IN REACH.
[2019-07-05 01:22] VITALS: BP 103/56
[2019-07-05 06:20] VITALS: BP 104/52
[2019-07-05 09:01] VITALS: BP 107/86
--- NOTE | 2019-07-05 11:18 | MORECARE ---
CASE MANAGEMENT DISCHARGE SUMMARY PATIENT: JARAD KARIMI UNIT: [id number] ADM DATE: 07/03/19 AGE: 59 : 64 SEX: M ROOM/BED: D.2202 AUTHOR: ELEAZAR,DOC PHYSICIAN: REFERRING PHYSICIAN: AARON BROWN MD DATE OF SERVICE: 07/05/19 Discharge Plan Patient Name: JARAD KARIMI Facility: [facility]:[place] : 1960 Planned Disposition: Home or Self Care Anticipated Discharge Date: Discharge Date: Expected LOS: Initial Reviewer: [email or web address] Initial Review Date: 07/03/2019 Generated: 07/05/19 12:17 pm Comments DCP- Discharge Planning Updated by [email or web address]: Madison Stein on 07/05/19 10:[address] Patient Name: JARAD KARIMI Admission Status: ER Accout number: [id number] Admission Date: 07-03-2019 : 1960 Admission Diagnosis: Attending: AARON BROWN Current LOS: 2 Anticipated DC Date: Planned Disposition: Home or Self Care Primary Insurance: [facility] [employer] Discharge Planning Comments: CM met with patient to complete initial dc planning assessment. CM educated patient on the CM role and verbal consent given by patient to complete assessment. Patient lives at home where he is independent with his care. At discharge patient plans to return home and feels this is a safe discharge. His sister will be his transport driver home. CM discussed availability of home health, rehab services, and medical equipment. He has a walker, wheelchair and cpap at home. Patient denied known discharge needs at this time. Patient discharging home today. CM will continue to follow and will assist as needed with dc plans/needs. Forest Fire Prevention Specialist: Madison Stein DCPIA - Discharge Planning Initial Assessment Updated by [email or web address]: Madison Stein on 07/05/19 11:14 am * Is the patient Alert and Oriented? Yes * How many steps to enter\exit or inside your home? * PCP VANDA * [facility] * Preadmission Environment Home with Family * ADLs Independent * Equipment CPAP Rolling Walker Walker Wheelchair * List name and contact numbers for known caregivers / representatives who currently or will assist patient after discharge: CLAUDIA [phone] * Verbal permission to speak to the caregivers and representatives has been obtained from the patient. N/A * Community resources currently utilized None * Additional services required to return to the preadmission environment? No * Can the patient safely return to the preadmission environment? Yes * Has this patient been hospitalized within the prior 30 days at any hospital? No Patient Name: JARAD KARIMI Page [id number] at 1118 All edits/amendments must be made on the electronic document DICTATION DATE: 07/05/191117 RESEARCH WORKER KITCHEN: JOSE 07/05/191117 RPT#: [id number] DC DATE: STATUS: ADM IN [facility] [address] [place] [address] END OF REPORT
--- NOTE | 2019-07-05 11:53 | NUR ---
DC HOME AT THIS TIME VOICE UNDERSTANDING OF DC INSTUCTION WITH SISTER AT BEDSIDE. IV DC WITH TIP INTACT. STABLE CONDITION UPON DEPARURE. C/L IN REACH AT BEDSIDE.
--- NOTE | 2019-07-06 15:20 | MORECARE ---
CASE MANAGEMENT DISCHARGE SUMMARY PATIENT: JARAD KARIMI UNIT: [id number] ADM DATE: 07/03/19 AGE: 59 : 64 SEX: M ROOM/BED: D.2202 AUTHOR: ELEAZAR,DOC PHYSICIAN: REFERRING PHYSICIAN: AARON BROWN MD DATE OF SERVICE: 07/06/19 Discharge Plan Patient Name: JARAD KARIMI Facility: [facility]:[place] : 1960 Planned Disposition: Home or Self Care Anticipated Discharge Date: Discharge Date: 07/05/2019 Expected LOS: Initial Reviewer: [email or web address] Initial Review Date: 07/03/2019 Generated: 07/06/19 4:20 pm Comments DCP- Discharge Planning Updated by [email or web address]: Madison Stein on 07/05/19 10:[address] Patient Name: JARAD KARIMI Admission Status: ER Accout number: [id number] Admission Date: 07-03-2019 : 1960 Admission Diagnosis: Attending: AARON BROWN Current LOS: 2 Anticipated DC Date: Planned Disposition: Home or Self Care Primary Insurance: [facility] MEDIC[employer] SOLUTIONS Discharge Planning Comments: CM met with patient to complete initial dc planning assessment. CM educated patient on the CM role and verbal consent given by patient to complete assessment. Patient lives at home where he is independent with his care. At discharge patient plans to return home and feels this is a safe discharge. His sister will be his m48/m60 tank driver home. CM discussed availability of home health, rehab services, and medical equipment. He has a walker, wheelchair and cpap at home. Patient denied known discharge needs at this time. Patient discharging home today. CM will continue to follow and will assist as needed with dc plans/needs. Housekeeper Home: Madison Stein DCPIA - Discharge Planning Initial Assessment Updated by [email or web address]: Madison Stein on 07/05/19 11:14 am * Is the patient Alert and Oriented? Yes * How many steps to enter\exit or inside your home? * PCP VANDA * [facility] * Preadmission Environment Home with Family * ADLs Independent * Equipment CPAP Rolling Walker Walker Wheelchair * List name and contact numbers for known caregivers / representatives who currently or will assist patient after discharge: CLAUDIA JIMMIE [phone] * Verbal permission to speak to the caregivers and representatives has been obtained from the patient. N/A * Community resources currently utilized None * Additional services required to return to the preadmission environment? No * Can the patient safely return to the preadmission environment? Yes * Has this patient been hospitalized within the prior 30 days at any hospital? No Last DP export: 07/05/19 10:18 Patient Name: JARAD KARIMI Page [id number] at 1520 All edits/amendments must be made on the electronic document DICTATION DATE: 07/06/19 1520 FUSION JUNCTURE GRINDER: JOSE 07/06/19 1520 RPT#: [id number] DC DATE:07/05/19 STATUS: DIS IN [facility] [address] [place] [address] END OF REPORT
== END 2019-07-05 11:54 | disposition home or self-care (01) | DRG 561 ==
LOC: D.ER 17:07 → D.MS 19:05
PROVIDERS: Family Medicine; ADMIT Orthopaedic Surgery; ATTEND Orthopaedic Surgery
DX: T84.028A Dislocation of other internal joint prosthesis, initial encounter (principal); Z96.621 Presence of right artificial elbow joint; W19.XXXA Unspecified fall, initial encounter; J45.909 Unspecified asthma, uncomplicated; I10 Essential (primary) hypertension

== ENCOUNTER → 2019-12-18 11:48 | Outpatient (CLI) | payer MEDICARE, MEDICAID ==
[2019-07-04 11:03] VITALS: BMI 29.3
[2019-12-18 13:48] LABS: BASOPHILS 0.4 % (0-2); EOSINOPHILS 0.9 % (0-7); HEMATOCRIT 45.9 % (42.0-54.0); HEMOGLOBIN 14.3 g/dL (13.5-17.5); IMMATURE GRANULOCYTES 0.2 % (0-5); LYMPHOCYTES 22.5 % (15-50); MCHC 31.2 g/dL (31.0-37.0); MCV 93.1 fL (80.0-100.0); MEAN PLATELET VOLUME 10.4 fL (7.4-10.4); MONOCYTES 6.9 % (2-11); NEUTROPHILS 69.1 % (40-80); PLATELET COUNT 233 10x3/uL (130-400); RBC 4.93 10x6/uL (4.20-6.10); WBC 5.6 10x3/uL (4.8-10.8)
== END | disposition home or self-care (01) ==
LOC: D.RT 11:48 → D.LAB 12-19 14:15 → D.CT 12-19 14:30 → D.RT 12-19 15:00
PROVIDERS: ATTEND Internal Medicine Pulmonary Disease
DX: J45.909 Unspecified asthma, uncomplicated (principal); J44.9 Chronic obstructive pulmonary disease, unspecified; R91.8 Other nonspecific abnormal finding of lung field

== ENCOUNTER → 2019-12-24 13:20 | Outpatient (CLI) | payer MEDICARE ==
[2019-07-04 11:03] VITALS: BMI 29.3
== END | disposition home or self-care (01) ==
LOC: D.HCCECHO 13:20
PROVIDERS: ATTEND Internal Medicine Cardiovascular Disease
DX: R06.00 Dyspnea, unspecified (principal)